=== PATIENT | female | born 2005 | race Caucasian/White ===

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

== ENCOUNTER 2023-02-13 09:45 | Emergency (ER) | payer OTHER, SELFPAY ==
[2023-02-13 10:11] VITALS: BP 114/74; PULSE 94; RESP 19; TEMP 37.2; O2SAT 100; BMI 18.2
[2023-02-13 11:20] LABS: COVID-19 Test Negative (Negative); IDNOW Serial# 9DB6401D
[2023-02-13 11:45] LABS: Influenza A PCR NEGATIVE (Negative); Influenza B PCR NEGATIVE (Negative); Resp Syncy Virus RNA Qual PCR NEGATIVE (Negative); SARS COV2 PCR INHOUSE NEGATIVE (Negative)
--- OUTSIDE RECORDS SUMMARY | 2023-02-13 12:03 | XMS_ITS | Continuity of Care Document ---
Author Name Unknown Organization [facility] Address [address] [place] [address]- Care Team Providers Care Studio Camera Operator Name Role Phone Jenny WILSON, Venancio Smith Primary Care Physician [phone] Encounter [facility] Date(s): 05/25/21 - 06/24/21 [facility] [address] [place] [address]- Attending Physician: Admrico, Luis Admitting Physician: Admtr, Luis Referring Physician: Admtr, Ar8 Allergies, Adverse Reactions, Alerts Substance Reaction Severity Status Glutens Active Other Environmental Allergy Active Immunizations Given and Recorded Vaccine Date Status Refusal Reason SARS-CoV-2 (COVID-19) Ad26 vaccine 1 03/08/21 Give n tetanus/diphtheria/pertussis, acel(Tdap) 02/06/21 Given tetanus/diphtheria/pertussis, acel(Tdap) 11/14/12 Recorded tetanus/diphtheria/pertussis, acel(Tdap) 06/01/11 Recorded Meningococcal Conjugate Vaccine 02/06/21 Given Meningococcal Conjugate Vaccine 06/10/15 Recorded influenza virus vaccine, inactivated 06/17/20 Vipin rded influenza virus vaccine, inactivated 06/23/18 Vipin rded influenza virus vaccine, inactivated 07/16/17 Vipin rded influenza virus vaccine, inactivated 06/11/16 Vipin rded influenza virus vaccine, inactivated 06/10/15 Vipin rded meningococcal group B vaccine 10/24/19 Recorded Hepatitis A Pediatric Vaccine 07/16/17 Recorded Hepatitis A Pediatric Vaccine 06/11/16 Recorded Human Papillomavirus Vaccine 02/15/16 Recorded Human Papillomavirus Vaccine 10/14/15 Recorded Human Papillomavirus Vaccine 06/10/15 Recorded pneumococcal 13-valent vaccine 10/14/15 Recorded Poliovirus Vaccine, Inactivated 11/14/12 Recorded Poliovirus Vaccine, Inactivated 05/15/12 Recorded Poliovirus Vaccine, Inactivated 06/01/11 Recorded hepatitis B pediatric vaccine 11/14/12 Recorded hepatitis B pediatric vaccine 07/17/12 Recorded hepatitis B pediatric vaccine 05/15/12 Recorded tetanus-diphtheria toxoids (Td) 05/15/12 Recorded Varicella Virus Vaccine 06/01/11 Recorded Varicella Virus Vaccine 01/11/04 Recorded Varicella Virus Vaccine 01/11/04 Recorded Measles/Mumps/Rubella Virus Vaccine 07/31/06 Recor ded Measles/Mumps/Rubella Virus Vaccine 01/11/04 Recor ded 1Result Comment: [facility]: 39236-846-11 Medications albuterol CFC free 90 mcg/inh inhalation aerosol See Instructions, 2 puffs Inhalation PRN, 0 Refills, Maintenance Start Date: 06/15/11 Status: Ordered diclofenac sodium 75 mg oral delayed release tablet 1 tablet = 75 mg, By Mouth, 2 times a day, # 60 tablet, 0 Refills, Maintenance, 05/25/21 17:16:00 EDT, EC Tablet, [facility]/pharmacy #[id number], Partial fill upon patient request if the prescription is for a schedule II opioid drug., 154, cm, 05/25/21 17:04:00 E... Start Date: 05/25/21 Status: Ordered HydrOXYzine 0 Refills, Maintenance, 10/19/19 22:14:00 EST Start Date: 10/19/19 Status: Ordered Lexapro 10 mg oral tablet See Instructions, 1 tablet By Mouth Daily, 0 Refills, Maintenance, 10/08/18 7:56:27 EST Start Date: 10/08/18 Status: Ordered Senna 8.6 mg oral tablet 17.2 mg, 2, tablet, By Mouth, Daily at bedtime, PRN, # 100 tablet, Refills 0, Tot. Refills 0, Maintenance, for constipation, 04/07/21 16:17:00 EDT, Route to Pharmacy Electronically, [facility]/pharmacy #[id number] Tablet, Partial fill upon patient request if the p... Start Date: 04/07/21 Status: Ordered Singulair 10 mg oral tablet 10 mg, 1, tablet, By Mouth, Daily, # 30 tablet, Refills 4, Tot. Refills 4, Maintenance, 02/06/21 15:36:00 EDT, Route to Pharmacy Electronically, [facility]/pharmacy #[id number], Partial fill upon patient request if the prescription is for a schedule II opioid drug... Start Date: 02/06/21 Status: Ordered Symbicort 160mcg/4.5mcg Inhaler 2, puffs, Inhalation, 2 times a day, # 6 Gm, Refills 3, Tot. Refills 3, Maintenance, 04/07/21 16:17:00 EDT, Aerosol, Route to Pharmacy Electronically, [id number], [facility]/pharmacy #[id number], 155, cm, 04/07/21 15:49:00 EDT, Height, 58... Start Date: 04/07/21 Status: Ordered Problem List Condition Effective Dates Status Health Status Inform ant Chest pain(Confirmed) Active Chronic migraine(Confirmed) Active Mild persistent asthma(Confirmed) Active Social History Social History Type Response Smoking Status Never smoker; Tobacc o user in household: No entered on: 12/12/15 Sex Female
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
--- OUTSIDE RECORDS SUMMARY | 2023-02-13 12:03 | XMS_ITS | Continuity of Care Document ---
Author Name Unknown Organization [facility] Address [address] [place] [address]- Care Team Providers Care Mix Technician Name Role Phone Jenny WILSON, Venancio Smith Primary Care Physician [facility] Date(s): 04/07/21 - 05/07/21 [facility] [address] [place] [address]- Attending Physician: Luis Boudreaux Admitting Physician: AdmLuis gómez Referring Physician: AdmtrLuis Allergies, Adverse Reactions, Alerts Substance Reaction Severity [...] Papillomavirus Vaccine 06/10/15 Recorded pneumococcal 13-valent vaccine 1/22/16 Recorded Poliovirus Vaccine, Inactivated 11/14/12 Recorded Poliovirus [...] Virus Vaccine 01/11/04 Recor ded 1Result Comment: [facility]: [id number] Medications Aerochamber w/Mask (Small) See Instructions, # 1 each, Maintenance, For use with MDI ICD10: J45.50, 02/08/21 10:03:00 EDT, Supply, 155, cm, 02/06/21 15:21:00 EDT, Height, 58.2, kg, 11/12/20 19:29:00 EST, Dry Weight Start Date: 02/08/21 Status: Ordered albuterol CFC free 90 mcg/inh inhalation aerosol See Instructions, 2 puffs Inhalation PRN, 0 Refills, Maintenance Start Date: 06/15/11 Status: Ordered diclofenac 1% topical gel See Instructions, APPLY TO AFFECTED AREA 4 TIMES A DAY NEEDED FOR PAIN, # 100 Gm, 0 Refills, Maintenance, [id number], 30, APPLY TO AFFECTED AREA 4 TIMES A DAY NEEDED FOR PAIN, 155, cm, 02/06/21 15:21:00 EDT, Height, 58.2, kg, 11/12/20 19:29... Start Date: 03/06/21 Status: Ordered HydrOXYzine 0 Refills, Maintenance, 10/19/19 22:14:00 EST Start Date: 10/19/19 Status: Ordered Junel Fe .5 oral tablet 1 tablet, By Mouth, Daily, # 84 tablet, 3 Refills, Maintenance, 01/04/20 9:25:00 EDT, Tablet, [id number], 1 tablet By Mouth Daily, 157, cm, 12/29/19 10:27:00 EDT, Height, 53.7, kg, 12/29/19 10:27:00 EDT, Dry Weight Start Date: 01/04/20 Status: Ordered Lexapro 10 mg oral tablet See Instructions, 1 tablet By Mouth Daily, 0 Refills, Maintenance, 10/08/18 7:56:27 EST Start Date: 10/08/18 Status: Ordered meclizine 12.5 mg oral tablet 1 tablet = 12.5 mg, By Mouth, 3 times a day, PRN for dizziness, # 30 tablet, 0 Refills, Maintenance, 04/07/21 16:15:00 EDT, Tablet, [id number], Partial fill upon patient request if the prescription is for a schedule II opioid drug., 155, cm, 0... Start Date: 04/07/21 Status: Ordered Nexplanon 68 mg subcutaneous implant 1 each = 68 mg, Subcutaneous Infusion, Once, 0 Refills, Maintenance, 11/12/20 19:32:00 EST, Partialfill upon patient request if the prescription is for a schedule II opioid drug. Start Date: 11/12/20 Status: Ordered omeprazole 20 mg oral enteric coated capsule 1 capsule = 20 mg, By Mouth, Daily, # 30 capsule, 2 Refills, Maintenance, 04/10/21 14:55:00 EDT, ECCapsule, [id number], Partial fill upon patient request if the prescription is for a schedule II opioid drug., 155, cm, 04/07/21 15:49:00 EDT, H... Start Date: 04/10/21 Status: Ordered Senna 8.6 mg oral tablet 17.2 mg, 2, tablet, By Mouth, Daily at bedtime, PRN, # 100 tablet, Refills 0, Tot. Refills 0, Maintenance, for constipation, 04/07/21 16:17:00 EDT, Route to Pharmacy Electronically, [id number] Tablet, Partial fill upon patient request if the p... Start Date: 04/07/21 Status: Ordered Singulair 10 mg oral tablet 10 mg, 1, tablet, By Mouth, Daily, # 30 tablet, Refills 4, Tot. Refills 4, Maintenance, 02/06/21 15:36:00 EDT, Route to Pharmacy Electronically, [id number], Partial fill upon patient request if the prescription is for a schedule II opioid drug... Start Date: 02/06/21 Status: Ordered Symbicort 160mcg/4.5mcg Inhaler 2, puffs, Inhalation, 2 times a day, # 6 Gm, Refills 3, Tot. Refills 3, Maintenance, 04/07/21 16:17:00 EDT, Aerosol, Route to Pharmacy Electronically, [id number], [facility]/pharmacy #[id number], 155, cm, 04/07/21 15:49:00 EDT, Height, 58... Start Date: 04/07/21 Status: Ordered Problem List Condition Effective Dates Status Health Status Inform ant Chest pain(Confirmed) Active Chronic migraine(Confirmed) Active Mild persistent asthma(Confirmed) Active Social History Social History Type Response Smoking Status Never smoker; Tobacc o user in household: No entered on: 12/12/15 Sex Female
--- OUTSIDE RECORDS SUMMARY | 2023-02-13 12:03 | XMS_ITS | Continuity of Care Document ---
Author Name Unknown Organization [facility] Address [address] [place] [address]- Care Team Providers Care Outside Sales Consultant Name Role Phone Jenny WILSON, Venancio Smith Primary Care Physician [phone] Encounter [facility] Date(s): 02/06/21 - 02/13/21 [facility] [address] [place] [address]- Encounter Diagnosis Encounter to establish care(Discharge Diagnosis) - 02/12/21 Mild persistent asthma(Discharge Diagnosis) - 02/12/21 Left knee pain(Discharge Diagnosis) - 02/12/21 Anxiety with depression(Discharge Diagnosis) - 02/12/21 ADHD (attention deficit hyperactivity disorder)(Discharge Diagnosis) - 02/12/21 Attending Physician: Venancio Alvarado NP Allergies, Adverse Reactions, Alerts Substance Reaction Severity [...] 3 Refills, Maintenance, 01/04/20 9:25:00 EDT, Tablet, [facility]/pharmacy #[id number], 1 tablet By Mouth Daily, [...] 10:01:00 EDT, Aerosol, Route to Pharmacy Electronically, [id number], [id number], 155, cm, 02/06/21 15:21:00 EDT, [...] Effective Dates Health Status Clinical Service Informant Encounter to establish care Discharge Diagnosis 02/12/21 Mild persistent asthma Discharge Diagnosis 02/12/21 Left knee pain Discharge Diagnosis 02/12/21 Anxiety with depression Discharge Diagnosis 02/12/21 ADHD (attention deficit hyperactivity disorder) Discharge Diagnosis 02/12/21 Vital Signs Most recent to oldest [Reference Range]: 1 Height 155 cm (02/06/21 3:21 PM) Weight 52.2 kg (02/06/21 3:21 PM) Oxygen Saturation [94-100 %] 99 % (02/06/21 3:21 PM) Pulse Rate [55-90 bpm] 73 bpm (02/06/21 3:21 PM) Body Mass Index [18.5-24.99] 21.73 (02/06/21 3:21 PM) Blood Pressure [71-110/30-71 mm Hg] 104/ 67mm Hg (02/06/21 3:21 PM) Respiratory Rate [16-30 br/min] 18 br/mi n (02/06/21 3:21 PM) Blood pressure sites Arm, left (02/06/21 3:21 PM) Weight Obtained Via Standing scale (02/06/21 3:21 PM) Social History Social History Type Response Smoking Status Never smoker; Tobacc o user in household: No entered on: 12/12/15 Sex Female
--- OUTSIDE RECORDS SUMMARY | 2023-02-13 12:03 | XMS_ITS | Continuity of Care Document ---
Author Name Unknown Organization [facility] ter Address [address] [place] [address]- Care Team Providers Care Supply Chain Procurement Manager Name Role Phone Aldo RIVAS, Teto Capone Primary Care Physicia n Encounter [facility] Date(s): 10/09/19 - 10/09/[address] [address]- [facility] Discharge Disposition: A-D/C Home Attending Physician: Goodman RIVAS, Elton Ramírez Admitting Physician: Elton Torres MD Referring Physician: Not on Staff, Referring MD Allergies, Adverse Reactions, Alerts Substance Reaction Severity Status NKA Active Medications albuterol CFC free 90 mcg/inh inhalation aerosol See Instructions, 2 puffs Inhalation PRN, 0 Refills, Maintenance Start Date: 06/15/11 Status: Ordered ibuprofen 600 mg oral tablet 600 mg, 1, tablet, By Mouth, Every 6 hours, PRN, Refills 0, Maintenance, Migraine Headache, 03/13/18 14:11:09 EDT Start Date: 03/13/18 Status: Ordered Fe 1.530 oral tablet 1 tablet, By Mouth, Daily, # 84 tablet, 0 Refills, Maintenance, 09/04/19 13:31:21 EST, Tablet, 1 tablet By Mouth Daily, 153, cm, 09/04/19 12:59:43 EST, Height, 55, kg, 08/03/19 12:23:46 EST, Dry Weight Start Date: 09/04/19 Status: Ordered Lexapro 10 mg oral tablet See Instructions, 1 tablet By Mouth Daily, 0 Refills, Maintenance, 10/08/18 7:56:27 EST Start Date: 10/08/18 Status: Ordered Qvar 40 mcg Inhaler 80 mcg, Inhalation, Daily, 2 puffs, Maintenance, 12/12/15 9:28:53 EDT Start Date: 12/12/15 Status: Ordered Rizatriptan By Mouth, Daily, PRN as needed for migraine headache, 0 Refills, Maintenance, 03/13/18 14:11:01 EDT Start Date: 03/13/18 Status: Ordered SUMAtriptan 25 mg oral tablet 1 tablet = 25 mg, By Mouth, Daily, PRN for migraine headache, for 30 days, may repeat dose after 2 hours up to a maximum of 2, # 18 tablet, 0 Refills, Acute 11/08/19 9:53:00 EST, 10/09/19 9:53:00 EST, Tablet, [facility]/pharmacy #[id number], 157, cm, 10/09/19 6:47... Start Date: 10/09/19 Stop Date: 11/08/19 Status: Ordered Vyvanse By Mouth, Daily in AM, 0 Refills, Maintenance, 08/03/19 12:26:58 EST Start Date: 08/03/19 Status: Ordered Zofran ODT 4 mg oral tablet, disintegrating 1 tablet = 4 mg, By Mouth, Every 8 hours, PRN as needed for nausea/vomiting, # 10 tablet, 0 Refills, Maintenance, 05/09/19 21:56:12 EDT Start Date: 05/09/19 Status: Ordered Zofran ODT 4 mg oral tablet, disintegrating 1 tablet = 4 mg, By Mouth, 3 times a day, PRN Nausea, # 10 tablet, 0 Refills, Maintenance, 03/13/1815:03:38 EDT Start Date: 03/13/18 Status: Ordered ZyrTEC 10 mg oral tablet 1 tablet = 10 mg, By Mouth, Daily, # 30 tablet, 0 Refills, Maintenance, 02/12/19 0:22:06 EDT, Tablet Start Date: 02/12/19 Status: Ordered Problem List Condition Effective Dates Status Health Status Inform ant Chest pain(Confirmed) Active Chronic migraine(Confirmed) Active Mild persistent asthma(Confirmed) Active Well child(Confirmed) Active Vital Signs Most recent to oldest [Reference Range]: 1 2 3 Height 157 cm (10/09/19 10:15 AM) 157 cm (10/09/19 6:40 AM) Weight 53.3 kg (10/09/19 10:15 AM) 53.3 kg (10/09/19 6:40 AM) Oxygen Saturation [94-100 %] 100 % (10/09/19 10:15 AM) 99 % (10/09/19 6:40 AM) Pulse Rate [55-90 bpm] 65 bpm (10/09/19 10:15 AM) 82 bpm (10/09/19 6:40 AM) Body Mass Index [18.5-24.99] 21.62 (10/09/19 10:15 AM) Blood Pressure [80-130/50-80 mm Hg] 104/66mm Hg (10/09/19 10:15 AM) 120/62mm Hg (10/09/19 6:40 AM) Respiratory Rate [16-30 br/min] 18 br/min (10/09/19 10:15 AM) 18 br/min (10/09/19 8:57 AM) 18 br/min (10/09/19 7:46 AM) Temperature [96.8-100.4 DegF] 98.6 DegF (10/09/19 10:15 AM) 97.8 DegF (10/09/19 6:40 AM) Mode of Delivery (Oxygen) Room air (10/09/19 10:15 AM) Room air (10/09/19 6:40 AM) Blood pressure sites Arm, left (10/09/19 10:15 AM) Arm, left (10/09/19 6:40 AM) Temperature Route Oral (10/09/19 10:15 AM) Oral (10/09/19 6:40 AM) Dry Weight 53.3 kg (10/09/19 10:15 AM) 53.3 kg (10/09/19 6:40 AM) Weight Obtained Via Pediatric scale (10/09/19 6:40 AM) Dry Weight Obtained Via Pediatric scale (10/09/19 6:40 AM) Social History Social History Type Response Smoking Status Never smoker; Tobacc o user in household: No entered on: 12/12/15 Sex Female
--- OUTSIDE RECORDS SUMMARY | 2023-02-13 12:04 | XMS_ITS | Continuity of Care Document ---
Author Name Unknown Organization [facility] Address [address], [address] [place] [address]- Care Team Providers Care Transcript Clerk Name Role Phone Aldo RIVAS, Teto Capone Primary Care Physicia n [id number] - 01[facility]11/20 [facility] [address], [address] [place] [address]- Attending Physician: Fidelina RIVAS, Maddi Gentile Allergies, Adverse Reactions, Alerts Substance Reaction Severity [...] puffs, Maintenance, 12/12/15 9:28:53 EDT Start Date: 3/21/16 Status: Ordered Rizatriptan By Mouth, Daily, PRN as needed for migraine headache, 0 Refills, Maintenance, 03/13/18 14:11:01 EDT Start Date: 03/13/18 Status: Ordered Problem List Condition Effective Dates Status Health Status Inform ant Chest pain(Confirmed) Active Chronic migraine(Confirmed) Active Mild persistent asthma(Confirmed) Active Well child(Confirmed) Active Social History Social History Type Response Smoking Status Never smoker; Tobacc o user in household: No entered on: 12/12/15 Sex Female
--- OUTSIDE RECORDS SUMMARY | 2023-02-13 12:04 | XMS_ITS | Continuity of Care Document ---
Author Name Unknown Organization [facility] Address [address] [place] [address]- Care Team Providers Care Dairy Lab Technician Name Role Phone Charles Mccoy DO Primary Care Physician Encounter [facility] Date(s): 11/19/22 - 12/19/22 [facility] [address] [place] [address]- Attending Physician: Luis Boudreaux Admitting Physician: AdmLuis [...] Virus Vaccine 01/11/04 Recor ded 1Result Comment: [facility]: 61391-248-00 Medications albuterol CFC free 90 mcg/inh inhalation aerosol See Instructions, 2 puffs Inhalation PRN, 0 Refills, Maintenance Start Date: 06/15/11 Status: Ordered albuterol CFC free 90 mcg/inh inhalation aerosol 1, puffs, Inhalation, Every 6 hours, PRN, # 6.7 Gm, Refills 5, Tot. Refills 5, Maintenance, 08/28/21 13:56:00 EST, Aerosol, Route to Pharmacy Electronically, [id number], [facility]/pharmacy #[id number], 154, cm, 07/05/21 9:00:00 EDT, Gerryig... Start Date: 08/28/21 Status: Ordered diclofenac sodium 75 mg oral delayed release tablet 1 tablet = 75 mg, By Mouth, 2 times a day, # 60 tablet, 0 Refills, Maintenance, 05/25/21 17:16:00 EDT, EC Tablet, [facility]/pharmacy #[id number], Partial fill upon patient request if the prescription is for a schedule II opioid drug., 154, cm, 05/25/21 17:04:00 E... Start Date: 05/25/21 Status: Ordered HydrOXYzine 0 Refills, Maintenance, 10/19/19 22:14:00 EST Start Date: 10/19/19 Status: Ordered Lexapro 10 mg oral tablet See Instructions, 1 tablet By Mouth Daily, 0 Refills, Maintenance, 10/08/18 7:56:27 EST Start Date: 10/08/18 Status: Ordered montelukast 10 mg oral tablet See Instructions, TAKE 1 TABLET BY MOUTH EVERY DAY, # 30 tablet, Refills 4, Instructions Replace Required Details, Route to Pharmacy Electronically, [id number], 154, cm, 07/05/21 9:00:00 EDT, Height, 54, kg, 05/20/21 16:36:00 EDT, Dry Weight Start Date: 02/10/22 Status: Ordered Nature's Bounty Probiotic oral tablet 1 tablet, By Mouth, Daily, # 30 tablet, 0 Refills, Maintenance, 07/05/21 9:25:00 EDT, [facility]/pharmacy #1026, Partial fill upon patient request if the prescription is for a schedule II opioid drug., 1 tablet By Mouth Daily, 154, cm, 07/05/21 9:00:00 EDT,... Start Date: 07/05/21 Status: Ordered Senna 8.6 mg oral tablet 17.2 mg, 2, tablet, By Mouth, Daily at bedtime, PRN, # 100 tablet, Refills 0, Tot. Refills 0, Maintenance, for constipation, 04/07/21 16:17:00 EDT, Route to Pharmacy Electronically, [facility]/pharmacy #1026 Tablet, Partial fill upon patient request if the p... Start Date: 04/07/21 Status: Ordered Singulair 10 mg oral tablet 10 mg, 1, tablet, By Mouth, Daily, # 30 tablet, Refills 4, Tot. Refills 4, Maintenance, 02/06/21 15:36:00 EDT, Route to Pharmacy Electronically, [facility]/pharmacy #[id number], Partial fill upon patient request if the prescription is for a schedule II opioid drug... Start Date: 02/06/21 Status: Ordered Symbicort 160mcg/4.5mcg Inhaler 2, puffs, Inhalation, 2 times a day, # 6 Gm, Refills 3, Tot. Refills 3, Maintenance, 04/07/21 16:17:00 EDT, Aerosol, Route to Pharmacy Electronically, [id number], [facility]/pharmacy #1026, 155, cm, 04/07/21 15:49:00 EDT, Height, 58... Start Date: 04/07/21 Status: Ordered Problem List Condition Confirmation Course Effective Dates Status Health St atus Informant Chest pain Confirmed Active Chronic migraine Confirmed Active Mild persistent asthma Confirmed Active Social History Social History Type Response Smoking Status Never smoker; Tobacc o user in household: No entered on: 12/12/15 Sex Female Note * Event Display: Non BH Lab Results Authored Date: * Event Display: Non BH Lab Results Authored Date: * Event Display: Non BH Lab Results Authored Date: * Event Display: Non BH Lab Results Authored Date: * Event Display: Non BH Lab Results Authored Date: * Event Display: X-Ray Chest, Non- BH Authored Date: Patient Care team information Care Team Personnel Name: Charles Mccoy DO Position: S Primary Care Physician Member Role: PCP Address: Address: [address] [place] [address] Care Team Related Persons Name: LISE BEAVERS Address: [address] [place] [address] Name: SUMAN CRYSTAL Address: home [address] [place] [address] Name: NOR[address] Address: home [address] [place] [address] Name: NORMA [address] Address: home [address] [place] [address] [place] [address] Name: [address]ISE [address] Address: home [address] [place] [address] [place] [address] Name: GRACIELA CAZARES
--- OUTSIDE RECORDS SUMMARY | 2023-02-13 12:04 | XMS_ITS | Continuity of Care Document ---
Author Name Unknown Organization [facility] Address [address] [place] [address]- Care Team Providers Care Internet Media Planner Name Role Phone Jenny WILSON, Venancio Smith Primary Care Physician [phone] Encounter [facility] Date(s): 04/10/21 - 05/10/21 [facility] [address] [place] [address]- Allergies, Adverse Reactions, Alerts Substance Reaction Severity [...] Virus Vaccine 01/11/04 Recor ded 1Result Comment: [facility]: 90260-390-68 Medications Aerochamber w/Mask (Small) See Instructions, # [...] PAIN, # 100 Gm, 0 Refills, Maintenance, [id number], 30, APPLY TO AFFECTED AREA 4 TIMES A DAY NEEDED FOR PAIN, 155, cm, 02/06/21 15:21:00 EDT, Height, 58.2, kg, 11/12/20 19:29... Start Date: 03/06/21 Status: Ordered HydrOXYzine 0 Refills, Maintenance, 10/19/19 22:14:00 EST Start Date: 10/19/19 Status: Ordered Junel Fe 1.530 oral tablet 1 tablet, By Mouth, Daily, # 84 tablet, 3 Refills, Maintenance, 01/04/20 9:25:00 EDT, Tablet, [facility]/pharmacy #1026, 1 tablet By Mouth Daily, [...] 16:17:00 EDT, Aerosol, Route to Pharmacy Electronically, [id number], [facility]/pharmacy #1026, 155, cm, 04/07/21 15:49:00 EDT, Height, 58... Start Date: 04/07/21 Status: Ordered Problem List Condition Effective Dates Status Health Status Inform ant Chest pain(Confirmed) Active Chronic migraine(Confirmed) Active Mild persistent asthma(Confirmed) Active Social History Social History Type Response Smoking Status Never smoker; Tobacc o user in household: No entered on: 12/12/15 Sex Female
--- OUTSIDE RECORDS SUMMARY | 2023-02-13 12:04 | XMS_ITS | Continuity of Care Document ---
Author Name Unknown Organization [facility] Address [address] [place] [address]- Care Team Providers Care Distribution Engineer Name Role Phone Jenny WILSON, Venancio Smith Primary Care Physician Encounter [facility] Date(s): 04/17/21 - 05/17/21 [facility] [address] [place] [address]- Allergies, Adverse Reactions, Alerts Substance Reaction Severity [...] Virus Vaccine 01/11/04 Recor ded 1Result Comment: [facility]: 48236-562-53 Medications Aerochamber w/Mask (Small) See Instructions, # [...] PAIN, # 100 Gm, 0 Refills, Maintenance, [facility], 30, APPLY TO AFFECTED AREA 4 TIMES A DAY NEEDED FOR PAIN, 155, cm, 02/06/21 15:21:00 EDT, Height, 58.2, kg, 11/12/20 19:29... Start Date: 03/06/21 Status: Ordered HydrOXYzine 0 Refills, Maintenance, 10/19/19 22:14:00 EST Start Date: 10/19/19 Status: Ordered Junel Fe 1.530 oral tablet 1 tablet, By Mouth, Daily, # 84 tablet, 3 Refills, Maintenance, 01/04/20 9:25:00 EDT, Tablet, [facility]/pharmacy #1026, 1 tablet By Mouth [...] 16:17:00 EDT, Aerosol, Route to Pharmacy Electronically, [id number], [facility]/pharmacy #1026, 155, cm, 04/07/21 15:49:00 EDT, Height, 58... Start Date: 04/07/21 Status: Ordered Problem List Condition Effective Dates Status Health Status Inform ant Chest pain(Confirmed) Active Chronic migraine(Confirmed) Active Mild persistent asthma(Confirmed) Active Social History Social History Type Response Smoking Status Never smoker; Tobacc o user in household: No entered on: 12/12/15 Sex Female
--- OUTSIDE RECORDS SUMMARY | 2023-02-13 12:04 | XMS_ITS | Continuity of Care Document ---
Author Name Unknown Organization [facility] Address [address] [place] [address]- Care Team Providers Care Energy Risk Management Analyst Name Role Phone Jenny WILSON, Venancio Smith Primary Care Physician [facility]counter [facility] Date(s): 07/05/21 - 08/04/21 [facility] [address] [place] [address]- Attending Physician: Luis Boudreaux Admitting Physician: AdmLuis [...] Vaccine 01/11/04 Recor ded 1Result Comment: [facility]: 19253-523-97 Medications albuterol CFC free 90 mcg/inh inhalation aerosol See Instructions, 2 puffs Inhalation PRN, 0 Refills, Maintenance Start Date: 06/15/11 Status: Ordered albuterol CFC free 90 mcg/inh inhalation aerosol 1, puffs, Inhalation, Every 6 hours, PRN, # 6.7 Gm, Refills 0, Tot. Refills 0, Maintenance, 08/01/21 10:40:00 EST, Aerosol, Route to Pharmacy Electronically, [id number], [facility]/pharmacy #1026, 154, cm, 07/05/21 9:00:00 EDT, Aaliyah... Start Date: 08/01/21 Status: Ordered diclofenac sodium 75 mg oral delayed release tablet 1 tablet = 75 mg, By Mouth, 2 times a day, # 60 tablet, 0 Refills, Maintenance, 05/25/21 17:16:00 EDT, EC Tablet, [facility]/pharmacy #1026, Partial fill upon patient request if the prescription is for a schedule II opioid drug., 154, cm, 05/25/21 17:04:00 E... Start Date: 05/25/21 Status: Ordered HydrOXYzine 0 Refills, Maintenance, 10/19/19 22:14:00 EST Start Date: 10/19/19 Status: Ordered Lexapro 10 mg oral tablet See Instructions, 1 tablet By Mouth Daily, 0 Refills, Maintenance, 10/08/18 7:56:27 EST Start Date: 10/08/18 Status: Ordered Nature's Bounty Probiotic oral tablet 1 tablet, By Mouth, Daily, # 30 tablet, 0 Refills, Maintenance, 07/05/21 9:25:00 EDT, [facility]/pharmacy #1026, Partial fill upon patient request [...] 04/07/21 16:17:00 EDT, Route to Pharmacy Electronically, [facility]/pharmacy #1026 Tablet, Partial fill upon patient request if the p... Start Date: 04/07/21 Status: Ordered Singulair 10 mg oral tablet 10 mg, 1, tablet, By Mouth, Daily, # 30 tablet, Refills 4, Tot. Refills 4, Maintenance, 02/06/21 15:36:00 EDT, Route to Pharmacy Electronically, [facility]/pharmacy #[id number], Partial fill upon patient request if the prescription is for a schedule II opioid drug... Start Date: 02/06/21 Status: Ordered Symbicort 160mcg/4.5mcg Inhaler 2, puffs, Inhalation, 2 times a day, # 6 Gm, Refills 3, Tot. Refills 3, Maintenance, 04/07/21 16:17:00 EDT, Aerosol, Route to Pharmacy Electronically, [id number], [facility]/pharmacy #1026, 155, cm, 04/07/21 15:49:00 EDT, Height, 58... Start Date: 04/07/21 Status: Ordered Problem List Condition Effective Dates Status Health Status Inform ant Chest pain(Confirmed) Active Chronic migraine(Confirmed) Active Mild persistent asthma(Confirmed) Active Social History Social History Type Response Smoking Status Never smoker; Tobacc o user in household: No entered on: 12/12/15 Sex Female
--- OUTSIDE RECORDS SUMMARY | 2023-02-13 12:04 | XMS_ITS | Continuity of Care Document ---
Author Name Unknown Organization [facility] Address [address] [place] [address]- Care Team Providers Care Electronics Assembler Name Role Phone Jenny WILSON, Venancio Smith Primary Care Physician [phone] Encounter [facility] Date(s): 06/15/21 - 06/22/21 [facility] [address] [place] [address]- Attending Physician: Not on Staff, Attending MD Referring Physician: Venancio Alvarado NP Allergies, Adverse Reactions, [...] Vaccine 01/11/04 Recor ded 1Result Comment: [facility]: 11266-138-87 Medications albuterol CFC free 90 mcg/inh inhalation aerosol See Instructions, 2 puffs Inhalation PRN, 0 Refills, Maintenance Start Date: 06/15/11 Status: Ordered diclofenac sodium 75 mg oral delayed release tablet 1 tablet = 75 mg, By Mouth, 2 times a day, # 60 tablet, 0 Refills, Maintenance, 05/25/21 17:16:00 EDT, EC Tablet, [facility]/pharmacy #1026, Partial fill upon patient request if [...] 04/07/21 16:17:00 EDT, Route to Pharmacy Electronically, [facility]/pharmacy #1026 Tablet, Partial fill upon patient request if the p... Start Date: 04/07/21 Status: Ordered Singulair 10 mg oral tablet 10 mg, 1, tablet, By Mouth, Daily, # 30 tablet, Refills 4, Tot. Refills 4, Maintenance, 02/06/21 15:36:00 EDT, Route to Pharmacy Electronically, [facility]/pharmacy #[id number], Partial fill upon patient request if the prescription is for a schedule II opioid drug... Start Date: 02/06/21 Status: Ordered Symbicort 160mcg/4.5mcg Inhaler 2, puffs, Inhalation, 2 times a day, # 6 Gm, Refills 3, Tot. Refills 3, Maintenance, 04/07/21 16:17:00 EDT, Aerosol, Route to Pharmacy Electronically, [id number], [facility]/pharmacy #1026, 155, cm, 04/07/21 15:49:00 EDT, Height, 58... Start Date: 04/07/21 Status: Ordered Problem List Condition Effective Dates Status Health Status Inform ant Chest pain(Confirmed) Active Chronic migraine(Confirmed) Active Mild persistent asthma(Confirmed) Active Social History Social History Type Response Smoking Status Never smoker; Tobacc o user in household: No entered on: 12/12/15 Sex Female
--- OUTSIDE RECORDS SUMMARY | 2023-02-13 12:04 | XMS_ITS | Continuity of Care Document ---
Author Name Unknown Organization [facility] ter Address [address] [place] [address]- Care Team Providers Care Anesthesiologists' Assistant Name Role Phone Aldo RIVAS, Teto Capone Primary Care Physicia n Encounter [facility] Date(s): 12/29/19 - 12/29/[address] [address] Encounter Diagnosis Jaw pain(Final) - 12/29/19 Discharge Disposition: A-D/C Home Attending Physician: Keiko rConin MD Admitting Physician: Keiko Cronin MD Referring Physician: Not on Staff, Referring MD Allergies, Adverse Reactions, Alerts Substance Reaction Severity Status NKA Active Medications albuterol CFC free 90 mcg/inh inhalation aerosol See Instructions, 2 puffs Inhalation PRN, 0 Refills, Maintenance Start Date: 06/15/11 Status: Ordered HydrOXYzine 0 Refills, Maintenance, 10/19/19 22:14:00 EST Start Date: 10/19/19 Status: Ordered Junel Fe .530 oral tablet 1 tablet, By Mouth, Daily, [...] recent to oldest [Reference Range]: 1 2 Height 157 cm (12/29/19 10:27 AM) 157 cm (12/29/19 10:23 AM) Weight 53.7 kg (12/29/19 10:27 AM) 53.7 kg (12/29/19 10:23 AM) Oxygen Saturation [94-100 %] 100 % (12/29/19 12:54 PM) 100 % (12/29/19 10:23 AM) Pulse Rate [55-90 bpm] 82 bpm (12/29/19 12:54 PM) 88 bpm (12/29/19 10:23 AM) Body Mass Index [18.5-24.99] 21.79 (12/29/19 10:23 AM) Blood Pressure [80-130/50-80 mm Hg] 101/ 72mm Hg (12/29/19 12:54 PM) 118/84mm Hg (12/29/19 10:23 AM) Respiratory Rate [16-30 br/min] 18 br/mi n (12/29/19 12:54 PM) 20 br/min (12/29/19 10:23 AM) Temperature [96.8-100.4 DegF] 98.6 DegF (12/29/19 12:54 PM) 99.3 DegF (12/29/19 10:23 AM) Mode of Delivery (Oxygen) Room air (12/29/19 12:54 PM) Room air (12/29/19 10:23 AM) Blood pressure sites Arm, left (12/29/19 12:54 PM) Arm, left (12/29/19 10:23 AM) Temperature Route Oral (12/29/19 12:54 PM) Oral (12/29/19 10:23 AM) Dry Weight 53.7 kg (12/29/19 10:27 AM) 53.7 kg (12/29/19 10:23 AM) Weight Obtained Via Standing scale (12/29/19 10:23 AM) Dry Weight Obtained Via Standing scale (12/29/19 10:23 AM) Social History Social History Type Response Smoking Status Never smoker; Tobacc o user in household: No entered on: 12/12/15 Sex Female
--- OUTSIDE RECORDS SUMMARY | 2023-02-13 12:04 | XMS_ITS | Continuity of Care Document ---
Author Name Unknown Organization [facility] Address [address] [place] [address]- Care Team Providers Care Stripper Apprentice Name Role Phone Jenny WILSON, Venancio Smith Primary Care Physician [phone] Encounter [facility] Date(s): 06/15/21 - 07/21/21 [facility] [address] [place] [address]- Attending Physician: Venancio Alvarado NP Allergies, Adverse [...] Vaccine 01/11/04 Recor ded 1Result Comment: [facility]: 45526-228-72 Medications albuterol CFC free 90 mcg/inh inhalation aerosol See Instructions, 2 puffs Inhalation PRN, 0 Refills, Maintenance Start Date: 06/15/11 Status: Ordered diclofenac sodium 75 mg oral delayed release tablet 1 tablet = 75 mg, By Mouth, 2 times a day, # 60 tablet, 0 Refills, Maintenance, 05/25/21 17:16:00 EDT, EC Tablet, [facility]/pharmacy #1026, Partial fill upon patient request if [...] tablet, 0 Refills, Maintenance, 07/05/21 9:25:00 EDT, [facility]/pharmacy #[id number], Partial fill upon patient request [...] 04/07/21 16:17:00 EDT, Route to Pharmacy Electronically, [facility]/pharmacy #1026 Tablet, Partial fill upon patient request if the p... Start Date: 04/07/21 Status: Ordered Singulair 10 mg oral tablet 10 mg, 1, tablet, By Mouth, Daily, # 30 tablet, Refills 4, Tot. Refills 4, Maintenance, 02/06/21 15:36:00 EDT, Route to Pharmacy Electronically, [facility]/pharmacy #[id number], Partial fill upon patient request if the prescription is for a schedule II opioid drug... Start Date: 02/06/21 Status: Ordered Symbicort 160mcg/4.5mcg Inhaler 2, puffs, Inhalation, 2 times a day, # 6 Gm, Refills 3, Tot. Refills 3, Maintenance, 04/07/21 16:17:00 EDT, Aerosol, Route to Pharmacy Electronically, [id number], [facility]/pharmacy #1026, 155, cm, 04/07/21 15:49:00 EDT, Height, 58... Start Date: 04/07/21 Status: Ordered Problem List Condition Effective Dates Status Health Status Inform ant Chest pain(Confirmed) Active Chronic migraine(Confirmed) Active Mild persistent asthma(Confirmed) Active Social History Social History Type Response Smoking Status Never smoker; Tobacc o user in household: No entered on: 12/12/15 Sex Female
--- OUTSIDE RECORDS SUMMARY | 2023-02-13 12:04 | XMS_ITS | Continuity of Care Document ---
Author Name Unknown Organization [facility] Address [address] [place] [address]- Care Team Providers Care Nursery Worker Name Role Phone Joanne WILSON, Tomasa Link Primary Care Physician [facility] Date[facility]): 10[facility]21 - 11/17/21 [facility] [address] [place] [address]- Allergies, Adverse Reactions, Alerts Substance Reaction Severity [...] Virus Vaccine 01/11/04 Recor ded 1Result Comment: [facility]: [id number] Medications albuterol CFC free 90 mcg/inh inhalation aerosol See Instructions, 2 puffs Inhalation PRN, 0 Refills, Maintenance Start Date: 06/15/11 Status: Ordered albuterol CFC free 90 mcg/inh inhalation aerosol 1, puffs, Inhalation, Every 6 hours, PRN, # 6.7 Gm, Refills 5, Tot. Refills 5, Maintenance, 08/28/21 13:56:00 EST, Aerosol, Route to Pharmacy Electronically, [id number], [facility]/pharmacy #1026, 154, cm, 07/05/21 9:00:00 EDT, Heig... Start Date: 08/28/21 Status: Ordered diclofenac sodium 75 mg oral delayed release tablet 1 tablet = 75 mg, By Mouth, 2 times a day, # 60 tablet, 0 Refills, Maintenance, 05/25/21 17:16:00 EDT, EC Tablet, [facility]/pharmacy #1026, Partial fill upon patient request if [...] tablet, 0 Refills, Maintenance, 07/05/21 9:25:00 EDT, [facility]/pharmacy #1026, Partial fill upon patient request if [...] 04/07/21 16:17:00 EDT, Route to Pharmacy Electronically, [facility]/pharmacy #1026 Tablet, Partial fill upon patient request if the p... Start Date: 04/07/21 Status: Ordered Singulair 10 mg oral tablet 10 mg, 1, tablet, By Mouth, Daily, # 30 tablet, Refills 4, Tot. Refills 4, Maintenance, 02/06/21 15:36:00 EDT, Route to Pharmacy Electronically, [facility]/pharmacy #0693, Partial fill upon patient request if the prescription is for a schedule II opioid drug... Start Date: 02/06/21 Status: Ordered Symbicort 160mcg/4.5mcg Inhaler 2, puffs, Inhalation, 2 times a day, # 6 Gm, Refills 3, Tot. Refills 3, Maintenance, 04/07/21 16:17:00 EDT, Aerosol, Route to Pharmacy Electronically, [id number], [facility]/pharmacy #1026, 155, cm, 04/07/21 15:49:00 EDT, Height, 58... Start Date: 04/07/21 Status: Ordered Problem List Condition Effective Dates Status Health Status Inform ant Chest pain(Confirmed) Active Chronic migraine(Confirmed) Active Mild persistent asthma(Confirmed) Active Social History Social History Type Response Smoking Status Never smoker; Tobacc o user in household: No entered on: 12/12/15 Sex Female
--- OUTSIDE RECORDS SUMMARY | 2023-02-13 12:04 | XMS_ITS | Continuity of Care Document ---
Author Name Unknown Organization [facility] Address [address] [place] [address]- Care Team Providers Care Research Associate Quality Control Qc Name Role Phone Joanne WILSON, Tomasa Link Primary Care Physician [facility]): 10[facility] - 11/24/21 [facility] [address] [place] [address]- Attending Physician: Luis Boudreaux Admitting Physician: Luis Boudreaux Referring Physician: AdmtrLuis Allergies, Adverse Reactions, Alerts [...] Virus Vaccine 01/11/04 Recor ded 1Result Comment: [facility]: [id number] Medications albuterol CFC free 90 mcg/inh inhalation aerosol See Instructions, 2 puffs Inhalation PRN, 0 Refills, Maintenance Start Date: 06/15/11 Status: Ordered albuterol CFC free 90 mcg/inh inhalation aerosol 1, puffs, Inhalation, Every 6 hours, PRN, # 6.7 Gm, Refills 5, Tot. Refills 5, Maintenance, 08/28/21 13:56:00 EST, Aerosol, Route to Pharmacy Electronically, [id number], [facility]/pharmacy #1026, 154, cm, 07/05/21 9:00:00 EDT, Heig... Start Date: 08/28/21 Status: Ordered diclofenac sodium 75 mg oral delayed release tablet 1 tablet = 75 mg, By Mouth, 2 times a day, # 60 tablet, 0 Refills, Maintenance, 05/25/21 17:16:00 EDT, EC Tablet, [facility]/pharmacy #1026, Partial fill upon patient request [...] tablet, 0 Refills, Maintenance, 07/05/21 9:25:00 EDT, [facility]/pharmacy #1026, Partial fill upon patient request [...] 04/07/21 16:17:00 EDT, Route to Pharmacy Electronically, [facility]/pharmacy #1026 Tablet, Partial fill upon patient request if the p... Start Date: 04/07/21 Status: Ordered Singulair 10 mg oral tablet 10 mg, 1, tablet, By Mouth, Daily, # 30 tablet, Refills 4, Tot. Refills 4, Maintenance, 02/06/21 15:36:00 EDT, Route to Pharmacy Electronically, [facility]/pharmacy #0693, Partial fill upon patient request if the prescription is for a schedule II opioid drug... Start Date: 02/06/21 Status: Ordered Symbicort 160mcg/4.5mcg Inhaler 2, puffs, Inhalation, 2 times a day, # 6 Gm, Refills 3, Tot. Refills 3, Maintenance, 04/07/21 16:17:00 EDT, Aerosol, Route to Pharmacy Electronically, [id number], [facility]/pharmacy #1026, 155, cm, 04/07/21 15:49:00 EDT, Height, 58... Start Date: 04/07/21 Status: Ordered Problem List Condition Effective Dates Status Health Status Inform ant Chest pain(Confirmed) Active Chronic migraine(Confirmed) Active Mild persistent asthma(Confirmed) Active Social History Social History Type Response Smoking Status Never smoker; Tobacc o user in household: No entered on: 12/12/15 Sex Female
--- OUTSIDE RECORDS SUMMARY | 2023-02-13 12:04 | XMS_ITS | Continuity of Care Document ---
Author Name Unknown Organization [facility] Address [address] [place] [address]- Care Team Providers Care Track Laying Supervisor Name Role Phone Jenny WILSON, Venancio Smith Primary Care Physician [facility] Date[facility]): 07/31/21 - 08/30/21 [facility] [address] [place] [address]- Allergies, Adverse Reactions, Alerts Substance Reaction Severity [...] Virus Vaccine 01/11/04 Recor ded 1Result Comment: [facility]: 21370-988-68 Medications albuterol CFC free 90 mcg/inh inhalation aerosol See Instructions, 2 puffs Inhalation PRN, 0 Refills, Maintenance Start Date: 06/15/11 Status: Ordered albuterol CFC free 90 mcg/inh inhalation aerosol 1, puffs, Inhalation, Every 6 hours, PRN, # 6.7 Gm, Refills 5, Tot. Refills 5, Maintenance, 08/28/21 13:56:00 EST, Aerosol, Route to Pharmacy Electronically, [id number], [facility]/pharmacy #1026, 154, cm, 07/05/21 9:00:00 EDT, Heig... Start Date: 08/28/21 Status: Ordered diclofenac sodium 75 mg oral delayed release tablet 1 tablet = 75 mg, By Mouth, 2 times a day, # 60 tablet, 0 Refills, Maintenance, 05/25/21 17:16:00 EDT, EC Tablet, [facility]/pharmacy #1026, Partial fill upon patient request [...] tablet, 0 Refills, Maintenance, 07/05/21 9:25:00 EDT, [facility]/pharmacy #1026, Partial fill upon patient request [...] 04/07/21 16:17:00 EDT, Route to Pharmacy Electronically, [facility]/pharmacy #1026 Tablet, Partial fill upon patient request if the p... Start Date: 04/07/21 Status: Ordered Singulair 10 mg oral tablet 10 mg, 1, tablet, By Mouth, Daily, # 30 tablet, Refills 4, Tot. Refills 4, Maintenance, 02/06/21 15:36:00 EDT, Route to Pharmacy Electronically, [facility]/pharmacy #0693, Partial fill upon patient request if the prescription is for a schedule II opioid drug... Start Date: 02/06/21 Status: Ordered Symbicort 160mcg/4.5mcg Inhaler 2, puffs, Inhalation, 2 times a day, # 6 Gm, Refills 3, Tot. Refills 3, Maintenance, 04/07/21 16:17:00 EDT, Aerosol, Route to Pharmacy Electronically, [id number], [facility]/pharmacy #1026, 155, cm, 04/07/21 15:49:00 EDT, Height, 58... Start Date: 04/07/21 Status: Ordered Problem List Condition Effective Dates Status Health Status Inform ant Chest pain(Confirmed) Active Chronic migraine(Confirmed) Active Mild persistent asthma(Confirmed) Active Social History Social History Type Response Smoking Status Never smoker; Tobacc o user in household: No entered on: 12/12/15 Sex Female
--- OUTSIDE RECORDS SUMMARY | 2023-02-13 12:04 | XMS_ITS | Continuity of Care Document ---
Author Name Unknown Organization [facility] Address [address] [place] [address]- Care Team Providers Care Coding Quality Coordinator Name Role Phone Jenny WILSON, Venancio Smith Primary Care Physician [facility] Date[facility]s): 06[facility]13[facility]21 - 07/13/21 [facility] [address] [place] [address]- Allergies, Adverse Reactions, Alerts Substance Reaction Severity [...] Vaccine 01/11/04 Recor ded 1Result Comment: [facility]: 00196-719-29 Medications albuterol CFC free 90 mcg/inh inhalation aerosol See Instructions, 2 puffs Inhalation PRN, 0 Refills, Maintenance Start Date: 06/15/11 Status: Ordered diclofenac sodium 75 mg oral delayed release tablet 1 tablet = 75 mg, By Mouth, 2 times a day, # 60 tablet, 0 Refills, Maintenance, 05/25/21 17:16:00 EDT, EC Tablet, [facility]/pharmacy #1026, Partial fill upon patient request [...] tablet, 0 Refills, Maintenance, 07/05/21 9:25:00 EDT, [facility]/pharmacy #1026, Partial fill upon patient request [...] 04/07/21 16:17:00 EDT, Route to Pharmacy Electronically, [facility]/pharmacy #1026 Tablet, Partial fill upon patient request if the p... Start Date: 04/07/21 Status: Ordered Singulair 10 mg oral tablet 10 mg, 1, tablet, By Mouth, Daily, # 30 tablet, Refills 4, Tot. Refills 4, Maintenance, 02/06/21 15:36:00 EDT, Route to Pharmacy Electronically, [facility]/pharmacy #0693, Partial fill upon patient request if the prescription is for a schedule II opioid drug... Start Date: 02/06/21 Status: Ordered Symbicort 160mcg/4.5mcg Inhaler 2, puffs, Inhalation, 2 times a day, # 6 Gm, Refills 3, Tot. Refills 3, Maintenance, 04/07/21 16:17:00 EDT, Aerosol, Route to Pharmacy Electronically, [id number], [facility]/pharmacy #1026, 155, cm, 04/07/21 15:49:00 EDT, Height, 58... Start Date: 04/07/21 Status: Ordered Problem List Condition Effective Dates Status Health Status Inform ant Chest pain(Confirmed) Active Chronic migraine(Confirmed) Active Mild persistent asthma(Confirmed) Active Social History Social History Type Response Smoking Status Never smoker; Tobacc o user in household: No entered on: 12/12/15 Sex Female
--- OUTSIDE RECORDS SUMMARY | 2023-02-13 12:04 | XMS_ITS | Continuity of Care Document ---
Author Name Unknown Organization [facility] Address [address] [place] [address]- Care Team Providers Care Crystal Flat Grinder Name Role Phone Jenny WILSON, Venancio Smith Primary Care Physician [facility] Date[facility]s): 01/30[facility]21 - 04/23/21 [facility] [address] [place] [address]- Attending Physician: Venancio Alvarado NP Allergies, Adverse [...] 01/11/04 Recor ded 1Result Comment: [facility]: [id number] Medications Aerochamber w/Mask (Small) See Instructions, # [...] PAIN, # 100 Gm, 0 Refills, Maintenance, [facility] STORE [facility], 30, APPLY TO AFFECTED AREA 4 TIMES A DAY NEEDED FOR PAIN, 155, cm, 02/06/21 15:21:00 EDT, Height, 58.2, kg, 11/12/20 19:29... Start Date: 03/06/21 Status: Ordered HydrOXYzine 0 Refills, Maintenance, 10/19/19 22:14:00 EST Start Date: 10/19/19 Status: Ordered Junel Fe .02/19 oral tablet 1 tablet, By Mouth, Daily, [...] 15:36:00 EDT, Route to Pharmacy Electronically, [facility]acy [facility], Partial fill upon patient request if the prescription is for a schedule II opioid drug... Start Date: 02/06/21 Status: Ordered Symbicort 160mcg/4.5mcg Inhaler 2, puffs, Inhalation, 2 times a day, # 6 Gm, Refills 3, Tot. Refills 3, Maintenance, 04/07/21 16:17:00 EDT, Aerosol, Route to Pharmacy Electronically, [id number], [facility]/pharmacy #1026, 155, cm, 04/07/21 15:49:00 EDT, Height, 58... Start Date: 04/07/21 Status: Ordered Problem List Condition Effective Dates Status Health Status Inform ant Chest pain(Confirmed) Active Chronic migraine(Confirmed) Active Mild persistent asthma(Confirmed) Active Social History Social History Type Response Smoking Status Never smoker; Tobacc o user in household: No entered on: 12/12/15 Sex Female
--- OUTSIDE RECORDS SUMMARY | 2023-02-13 12:04 | XMS_ITS | Continuity of Care Document ---
Author Name Unknown Organization [facility] Address [address] [facility], [address] [place] [address]- Care Team Providers Care Airplane Rental Clerk Name Role Phone Jenny WILSON, Venancio Smith Primary Care Physician [place] [facility] [place] 03[place] - 04/07/21 [facility] [address] [facility] [address] [facility], [address] [place] [address]- Attending Physician: Maddi Kitchen MD Referring Physician: Venancio Alvarado NP Allergies, [...] Virus Vaccine 01/11/04 Recor ded 1Result Comment: [facility]: 76640-709-28 Medications Aerochamber w/Mask (Small) See Instructions, # [...] PAIN, # 100 Gm, 0 Refills, Maintenance, [facility], 30, APPLY TO AFFECTED AREA 4 TIMES A DAY NEEDED FOR PAIN, 155, cm, 02/06/21 15:21:00 EDT, Height, 58.2, kg, 11/12/20 19:29... Start Date: 03/06/21 Status: Ordered HydrOXYzine 0 Refills, Maintenance, 10/19/19 22:14:00 EST Start Date: 10/19/19 Status: Ordered Junel Fe 1.5 oral tablet 1 tablet, By Mouth, Daily, [...] 11/12/20 Status: Ordered omeprazole 20 mg oral delayed release tablet 1 tablet = 20 mg, By Mouth, Daily, # 30 tablet, 2 Refills, Maintenance, 04/07/21 16:16:00 EDT, CR Tablet, [facility], Partial fill upon patient request if the prescription is for a schedule II opioid drug., 155, cm, 04/07/21 15:49:00 EDT, Heig... Start Date: 04/07/21 Status: Ordered Senna 8.6 mg oral tablet [...] 15:36:00 EDT, Route to Pharmacy Electronically, [facility], Partial fill upon patient request if the prescription is for a schedule II opioid drug... Start Date: 02/06/21 Status: Ordered Symbicort 160mcg/4.5mcg Inhaler 2, puffs, Inhalation, 2 times a day, # 6 Gm, Refills 3, Tot. Refills 3, Maintenance, 04/07/21 16:17:00 EDT, Aerosol, Route to Pharmacy Electronically, [id number], [facility]/pharmacy #1026, 155, cm, 04/07/21 15:49:00 EDT, Height, 58... Start Date: 04/07/21 Status: Ordered Problem List Condition Effective Dates Status Health Status Inform ant Chest pain(Confirmed) Active Chronic migraine(Confirmed) Active Mild persistent asthma(Confirmed) Active Social History Social History Type Response Smoking Status Never smoker; Tobacc o user in household: No entered on: 12/12/15 Sex Female
--- OUTSIDE RECORDS SUMMARY | 2023-02-13 12:04 | XMS_ITS | Continuity of Care Document ---
Author Name Unknown Organization [facility] Address [address] [address] [facility], [address] [place] [address]- Care Team Providers Care Card Tape Converter Operator Name Role Phone Jenny WILSON, Venancio Smith Primary Care Physician [phone] Encounter [facility] Date(s): 03/31/21 - 04/30/21 [facility] [address] [facility], [address] [place], [place] [address] Attending Physician: AdmLuis gómez Admitting Physician: AdmtrLuis Referring Physician: Admtr, ArJocelyn Allergies, Adverse Reactions, Alerts Substance Reaction Severity [...] ded 1Result Comment: [facility]: 71538-868-30 Medications Aerochamber w/Mask (Small) See Instructions, # [...] # 100 Gm, 0 Refills, Maintenance, [facility] [address], 30, APPLY TO AFFECTED AREA 4 TIMES A DAY NEEDED FOR PAIN, 155, cm, 02/06/21 15:21:00 EDT, Height, 58.2, kg, 11/12/20 19:29... Start Date: 03/06/21 Status: Ordered HydrOXYzine 0 Refills, Maintenance, 10/19/19 22:14:00 EST Start Date: 10/19/19 Status: Ordered June Fe oral tablet 1 tablet, By Mouth, Daily, [...] 15:36:00 EDT, Route to Pharmacy Electronically, [facility], Partial fill upon patient request if the prescription is for a schedule II opioid drug... Start Date: 02/06/21 Status: Ordered Symbicort 160mcg/4.5mcg Inhaler 2, puffs, Inhalation, 2 times a day, # 6 Gm, Refills 3, Tot. Refills 3, Maintenance, 04/07/21 16:17:00 EDT, Aerosol, Route to Pharmacy Electronically, [id number], [facility]/pharmacy #1026, 155, cm, 04/07/21 15:49:00 EDT, Height, 58... Start Date: 04/07/21 Status: Ordered Problem List Condition Effective Dates Status Health Status Inform ant Chest pain(Confirmed) Active Chronic migraine(Confirmed) Active Mild persistent asthma(Confirmed) Active Social History Social History Type Response Smoking Status Never smoker; Tobacc o user in household: No entered on: 12/12/15 Sex Female
--- OUTSIDE RECORDS SUMMARY | 2023-02-13 12:04 | XMS_ITS | Continuity of Care Document ---
Author Name Unknown Organization [facility] Address [address] [place] [address]- Care Team Providers Care Child Care Sitter Name Role Phone Jenny WILSON, Venancio Smith Primary Care Physician [facility] Date[facility]s): 06/09/21 - 07/09/21 [facility] [address] [place] [address]- Allergies, Adverse Reactions, Alerts Substance Reaction Severity [...] Virus Vaccine 01/11/04 Recor ded 1Result Comment: [facility]: [id number] Medications albuterol CFC free 90 mcg/inh inhalation aerosol See Instructions, 2 puffs Inhalation PRN, 0 Refills, Maintenance Start Date: 06/15/11 Status: Ordered diclofenac sodium 75 mg oral delayed release tablet 1 tablet = 75 mg, By Mouth, 2 times a day, # 60 tablet, 0 Refills, Maintenance, 05/25/21 17:16:00 EDT, EC Tablet, [facility]/pharmacy #1026, Partial fill upon patient [...] tablet, 0 Refills, Maintenance, 07/05/21 9:25:00 EDT, [facility]/pharmacy #1026, Partial fill upon patient [...] 04/07/21 16:17:00 EDT, Route to Pharmacy Electronically, [facility]/pharmacy #1026 Tablet, Partial fill upon patient request if the p... Start Date: 04/07/21 Status: Ordered Singulair 10 mg oral tablet 10 mg, 1, tablet, By Mouth, Daily, # 30 tablet, Refills 4, Tot. Refills 4, Maintenance, 02/06/21 15:36:00 EDT, Route to Pharmacy Electronically, [facility]/pharmacy #0693, Partial fill upon patient request if the prescription is for a schedule II opioid drug... Start Date: 02/06/21 Status: Ordered Symbicort 160mcg/4.5mcg Inhaler 2, puffs, Inhalation, 2 times a day, # 6 Gm, Refills 3, Tot. Refills 3, Maintenance, 04/07/21 16:17:00 EDT, Aerosol, Route to Pharmacy Electronically, [id number], [facility]/pharmacy #1026, 155, cm, 04/07/21 15:49:00 EDT, Height, 58... Start Date: 04/07/21 Status: Ordered Problem List Condition Effective Dates Status Health Status Inform ant Chest pain(Confirmed) Active Chronic migraine(Confirmed) Active Mild persistent asthma(Confirmed) Active Social History Social History Type Response Smoking Status Never smoker; Tobacc o user in household: No entered on: 12/12/15 Sex Female
--- OUTSIDE RECORDS SUMMARY | 2023-02-13 12:04 | XMS_ITS | Continuity of Care Document ---
Author Name Unknown Organization [facility] Address [address] [address]- Care Team Providers Care Sleever Name Role Phone Charles Mccoy DO Primary Care Physician [facility] Date[facility]s): 10/23/22 - 11/22/22 [facility] [address] [address] Allergies, Adverse Reactions, Alerts Substance Reaction Severity [...] Vaccine 01/11/04 Recor ded 1Result Comment: [facility]: [id number] Medications albuterol CFC free 90 mcg/inh inhalation aerosol See Instructions, 2 puffs Inhalation PRN, 0 Refills, Maintenance Start Date: 06/15/11 Status: Ordered albuterol CFC free 90 mcg/inh inhalation aerosol 1, puffs, Inhalation, Every 6 hours, PRN, # 6.7 Gm, Refills 5, Tot. Refills 5, Maintenance, 08/28/21 13:56:00 EST, Aerosol, Route to Pharmacy Electronically, [id number], [facility]/pharmacy #1026, 154, cm, 07/05/21 9:00:00 EDT, Heig... Start Date: 08/28/21 Status: Ordered diclofenac sodium 75 mg oral delayed release tablet 1 tablet = 75 mg, By Mouth, 2 times a day, # 60 tablet, 0 Refills, Maintenance, 05/25/21 17:16:00 EDT, EC Tablet, [facility]/pharmacy #1026, Partial fill upon patient request if [...] Replace Required Details, Route to Pharmacy Electronically, [facility] [address], 154, cm, 07/05/21 9:00:00 EDT, Height, 54, kg, 05/20/21 16:36:00 EDT, Dry Weight Start Date: 02/10/22 Status: Ordered Nature's Bounty Probiotic oral tablet 1 tablet, By Mouth, Daily, # 30 tablet, 0 Refills, Maintenance, 07/05/21 9:25:00 EDT, [facility]/pharmacy #1026, Partial fill upon patient request if [...] 04/07/21 16:17:00 EDT, Route to Pharmacy Electronically, [facility]/pharmacy #1026 Tablet, Partial fill upon patient request if the p... Start Date: 04/07/21 Status: Ordered Singulair 10 mg oral tablet 10 mg, 1, tablet, By Mouth, Daily, # 30 tablet, Refills 4, Tot. Refills 4, Maintenance, 02/06/21 15:36:00 EDT, Route to Pharmacy Electronically, [facility]/pharmacy #0693, Partial fill upon patient request if the prescription is for a schedule II opioid drug... Start Date: 02/06/21 Status: Ordered Symbicort 160mcg/4.5mcg Inhaler 2, puffs, Inhalation, 2 times a day, # 6 Gm, Refills 3, Tot. Refills 3, Maintenance, 04/07/21 16:17:00 EDT, Aerosol, Route to Pharmacy Electronically, [id number], [facility]/pharmacy #1026, 155, cm, 04/07/21 15:49:00 EDT, Height, 58... Start Date: 04/07/21 Status: Ordered Problem List Condition Confirmation Course Effective Dates Status Health St atus Informant Chest pain Confirmed Active Chronic migraine Confirmed Active Mild persistent asthma Confirmed Active Social History Social History Type Response Smoking Status Never smoker; Tobacc o user in household: No entered on: 12/12/15 Sex Female Patient Care team information Care Team Personnel Name: Charles Mccoy DO Position: [facility] Primary Care Physician Member Role: PCP Address: Address: [address] [place] [address] Care Team Related Persons Name: LISE BEAVERS Address: home [address] [place] [address] Name: SUMAN CRYSTAL Address: home [address] [place] [address] Name: [address] Address[address] home [address] [facility] [address] [place] [id number] Name: [address] Address[address] home [address] [facility] [facility] [address] [place] [address] Name: [address] Address: home [address] [facility] [address] [address] [place] [id number] Name: GRACIELA CAZARES
--- OUTSIDE RECORDS SUMMARY | 2023-02-13 12:04 | XMS_ITS | Continuity of Care Document ---
Author Name Unknown Organization [facility] Address [address] [place] [address]- Care Team Providers Care Office Assistant Receptionist Name Role Phone Jenny WILSON, Venancio Smith Primary Care Physician [facility] Date[facility]): [facility] - 02/19/21 [facility] [address] [place], [place] [address] Attending Physician: Luis Boudreaux Admitting Physician: Luis [...] 3 Refills, Maintenance, 01/04/20 9:25:00 EDT, Tablet, [facility]/pharmacy #1026, 1 tablet By Mouth [...] 10:01:00 EDT, Aerosol, Route to Pharmacy Electronically, [id number], [facility]/pharmacy #[id number], 155, cm, 02/06/21 15:21:00 EDT, Height, 58... Start Date: 02/08/21 Status: Ordered Voltaren 1% topical gel 1 application, Topically, 4 times a day, PRN for pain, # 100 Gm, 0 Refills, Maintenance, 02/06/21 15:58:00 EDT, Gel, [facility]/pharmacy #[id number], Partial fill upon patient [...]
--- OUTSIDE RECORDS SUMMARY | 2023-02-13 12:04 | XMS_ITS | Continuity of Care Document ---
Author Name Unknown Organization [facility] Address [address] [place] [address]- Care Team Providers Care Correction Officer Penitentiary Name Role Phone Jenny WILSON, Venancio Smith Primary Care Physician [facility] Date[facility]): 05/25/21 - 06/01/21 [facility] [address] [place] [address]- Attending Physician: Not on Staff, Attending MD [...] Virus Vaccine 01/11/04 Recor ded 1Result Comment: [facility]: 32718-858-99 Medications albuterol CFC free 90 mcg/inh inhalation aerosol See Instructions, 2 puffs Inhalation PRN, 0 Refills, Maintenance Start Date: 06/15/11 Status: Ordered diclofenac sodium 75 mg oral delayed release tablet 1 tablet = 75 mg, By Mouth, 2 times a day, # 60 tablet, 0 Refills, Maintenance, 05/25/21 17:16:00 EDT, EC Tablet, [facility]/pharmacy #[id number], Partial fill upon [...] 04/07/21 16:17:00 EDT, Route to Pharmacy Electronically, [facility]/pharmacy #1026 Tablet, Partial fill upon patient request if the p... Start Date: 04/07/21 Status: Ordered Singulair 10 mg oral tablet 10 mg, 1, tablet, By Mouth, Daily, # 30 tablet, Refills 4, Tot. Refills 4, Maintenance, 02/06/21 15:36:00 EDT, Route to Pharmacy Electronically, [facility]/pharmacy #[id number], Partial fill upon patient request if the prescription is for a schedule II opioid drug... Start Date: 02/06/21 Status: Ordered Symbicort 160mcg/4.5mcg Inhaler 2, puffs, Inhalation, 2 times a day, # 6 Gm, Refills 3, Tot. Refills 3, Maintenance, 04/07/21 16:17:00 EDT, Aerosol, Route to Pharmacy Electronically, [id number], [facility]/pharmacy #1026, 155, cm, 04/07/21 15:49:00 EDT, Height, 58... Start Date: 04/07/21 Status: Ordered Problem List Condition Effective Dates Status Health Status Inform ant Chest pain(Confirmed) Active Chronic migraine(Confirmed) Active Mild persistent asthma(Confirmed) Active Vital Signs Most recent to oldest [Reference Range]: 1 Height 154 cm (05/25/21 5:04 PM) Oxygen Saturation [94-100 %] 100 % (05/25/21 5:04 PM) Pulse Rate [55-90 bpm] 69 bpm (05/25/21 5:04 PM) Blood Pressure [71-110/30-71 mm Hg] 111/ 69mm Hg *H* (05/25/21 5:04 PM) Respiratory Rate [16-30 br/min] 20 br/mi n (05/25/21 5:04 PM) Temperature [96.8-100.4 DegF] 98.2 DegF (05/25/21 5:04 PM) Mode of Delivery (Oxygen) Room air (05/25/21 5:04 PM) Blood pressure sites Arm, right (05/25/21 5:04 PM) Social History Social History Type Response Smoking Status Never smoker; Tobacc o user in household: No entered on: 12/12/15 Sex Female
--- OUTSIDE RECORDS SUMMARY | 2023-02-13 12:04 | XMS_ITS | Continuity of Care Document ---
Author Name Unknown Organization [facility] Address [address] [place] [address]- Care Team Providers Care Front End Specialist Name Role Phone Jenny WILSON, Venancio Smith Primary Care Physician [facility] Date[facility]s): 06/07/21 - 07/07/21 [facility] [address] [place] [address]- Allergies, Adverse Reactions, Alerts Substance Reaction Severity [...] Virus Vaccine 01/11/04 Recor ded 1Result Comment: [facility]: 99708-938-27 Medications albuterol CFC free 90 mcg/inh inhalation aerosol See Instructions, 2 puffs Inhalation PRN, 0 Refills, Maintenance Start Date: 06/15/11 Status: Ordered diclofenac sodium 75 mg oral delayed release tablet 1 tablet = 75 mg, By Mouth, 2 times a day, # 60 tablet, 0 Refills, Maintenance, 05/25/21 17:16:00 EDT, EC Tablet, [facility]/pharmacy #[id number], Partial fill upon patient [...] 0 Refills, Maintenance, 07/05/21 9:25:00 EDT, [facility]/pharmacy #1026, Partial fill upon patient [...] 15:36:00 EDT, Route to Pharmacy Electronically, [facility]/pharmacy #[id number], Partial fill upon patient request if the prescription is for a schedule II opioid drug... Start Date: 02/06/21 Status: Ordered Symbicort 160mcg/4.5mcg Inhaler 2, puffs, Inhalation, 2 times a day, # 6 Gm, Refills 3, Tot. Refills 3, Maintenance, 04/07/21 16:17:00 EDT, Aerosol, Route to Pharmacy Electronically, [id number], [facility]/pharmacy #[id number], 155, cm, 04/07/21 15:49:00 EDT, Height, 58... Start Date: 04/07/21 Status: Ordered Zofran 4 mg oral tablet 1 tablet = 4 mg, By Mouth, Every 8 hours, PRN Vomiting, for 3 days, # 10 tablet, 0 Refills, Acute 07/08/21 9:21:00 EDT, 07/05/21 9:21:00 EDT, Tablet, [facility]26, Partial fill upon patient request if the prescription is for a schedule II opioid... Start Date: 07/05/21 Stop Date: 07/08/21 Status: Ordered Problem List Condition Effective Dates Status Health Status Inform ant Chest pain(Confirmed) Active Chronic migraine(Confirmed) Active Mild persistent asthma(Confirmed) Active Social History Social History Type Response Smoking Status Never smoker; Tobacc o user in household: No entered on: 12/12/15 Sex Female
--- OUTSIDE RECORDS SUMMARY | 2023-02-13 12:04 | XMS_ITS | Continuity of Care Document ---
Author Name Unknown Organization [facility] Address [address] [place] [address]- Care Team Providers Care Call Person Name Role Phone Aldo RIVAS, Teto Capone Primary Care Physicia n Encounter [facility] Date(s): 10/19/19 - 10/20/[address] [address]- [facility] Discharge Disposition: A-D/C Home Attending Physician: Cameron Wagner MD Admitting Physician: Cameron Wagner MD Referring Physician: Not on Staff, Referring [...] 11/08/19 9:53:00 EST, 10/09/19 9:53:00 EST, Tablet, [id number], 157, cm, 10/09/19 6:47... Start Date: 10/09/19 Stop Date: 11/08/19 Status: Ordered Problem List Condition Effective Dates Status Health Status Inform ant Chest pain(Confirmed) Active Chronic migraine(Confirmed) Active Mild persistent asthma(Confirmed) Active Well child(Confirmed) Active Vital Signs Most recent to oldest [Reference Range]: 1 2 3 Height 155.5 cm (10/20/19 1:04 AM) 155.5 cm (10/19/19 10:05 PM) 155.5 cm (10/19/19 9:10 PM) Weight 53.3 kg (10/20/19 1:04 AM) 53.3 kg (10/19/19 10:05 PM) 53.3 kg (10/19/19 9:10 PM) Oxygen Saturation [94-100 %] 100 % (10/20/19 1:04 AM) 100 % (10/19/19 9:10 PM) Pulse Rate [55-90 bpm] 75 bpm (10/20/19 1:04 AM) 85 bpm (10/19/19 9:10 PM) Body Mass Index [18.5-24.99] 22.04 (10/20/19 1:04 AM) 22.04 (10/19/19 9:10 PM) Blood Pressure [80-130/50-80 mm Hg] 102/51mm Hg (10/20/19 1:04 AM) 105/78mm Hg (10/19/19 9:10 PM) Respiratory Rate [16-30 br/min] 18 br/min (10/20/19 1:04 AM) 20 br/min (10/19/19 9:10 PM) Temperature [96.8-100.4 DegF] 98.1 DegF (10/20/19 1:04 AM) 98.2 DegF (10/19/19 9:10 PM) Mode of Delivery (Oxygen) Room air (10/20/19 1:04 AM) Room air (10/19/19 9:10 PM) Blood pressure sites Arm, left (10/20/19 1:04 AM) Arm, left (10/19/19 9:10 PM) Temperature Route Oral (10/20/19 1:04 AM) Oral (10/19/19 9:10 PM) Dry Weight 53.3 kg (10/20/19 1:04 AM) 53.3 kg (10/19/19 10:05 PM) 53.3 kg (10/19/19 9:10 PM) Weight Obtained Via Standing scale (10/19/19 9:10 PM) Dry Weight Obtained Via Standing scale (10/19/19 9:10 PM) Social History Social History Type Response Smoking Status Never smoker; Tobacc o user in household: No entered on: 12/12/15 Sex Female
--- OUTSIDE RECORDS SUMMARY | 2023-02-13 12:04 | XMS_ITS | Continuity of Care Document ---
Author Name Unknown Organization [facility] Address [address] [place] [address]- Care Team Providers Care Fashion Marketer Name Role Phone Jenny WILSON, Venancio Smith Primary Care Physician Encounter [facility] [id number] Date(s): 03/08/21 - 03/15/21 [facility] [address] [place] [address]- Encounter Diagnosis Chest pain(Discharge Diagnosis) - 03/12/21 Mild persistent asthma(Discharge Diagnosis) - 03/12/21 Constipation(Discharge Diagnosis) - 03/12/21 Homelessness(Discharge Diagnosis) - 03/12/21 Attending Physician: Venancio Alvarado NP Allergies, Adverse [...] Virus Vaccine 01/11/04 Recor ded 1Result Comment: [facility]: 55928-593-97 Medications Aerochamber w/Mask (Small) See Instructions, # [...] PAIN, # 100 Gm, 0 Refills, Maintenance, [facility], 30, APPLY TO AFFECTED AREA 4 TIMES A DAY NEEDED FOR PAIN, 155, cm, 02/06/21 15:21:00 EDT, Height, 58.2, kg, 11/12/20 19:29... Start Date: 03/06/21 Status: Ordered HydrOXYzine 0 Refills, Maintenance, 10/19/19 22:14:00 EST Start Date: 10/19/19 Status: Ordered oral tablet 1 tablet, By Mouth, Daily, # 84 tablet, 3 Refills, Maintenance, 01/04/20 9:25:00 EDT, Tablet, [facility]/pharmacy #1026, 1 tablet By Mouth Daily, 157, [...] Daily, # 30 tablet, 2 Refills, Maintenance, 03/08/21 16:20:00 EDT, CR Tablet, [facility]/pharmacy #2025, Partial fill upon patient request if the prescription is for a schedule II opioid drug., 155, cm, 03/08/21 15:34:00 EDT, Heig... Start Date: 03/08/21 Status: Ordered Qvar Redihaler 80 mcg/inh inhalation aerosol = 80 mcg, Inhalation, 2 times a day, # 1 each, 2 Refills, Maintenance, 03/08/21 16:17:00 EDT, [facility]/pharmacy #2025, Partial fill upon patient request if the prescription is for a schedule II opioid drug., 80 mcg Inhalation 2 times a day, 155, cm, ... Start Date: 03/08/21 Status: Ordered Senna 8.6 mg oral tablet 17.2 mg, 2, tablet, By Mouth, Daily at bedtime, PRN, # 100 tablet, Refills 0, Tot. Refills 0, Maintenance, for constipation, 03/10/21 7:43:00 EDT, Route to Pharmacy Electronically, [facility]/pharmacy #[id number], Partial fill upon patient request if the pr... Start Date: 03/10/21 Status: Ordered Singulair 10 mg oral tablet 10 mg, 1, tablet, By Mouth, Daily, # 30 tablet, Refills 4, Tot. Refills 4, Maintenance, 02/06/21 15:36:00 EDT, Route to Pharmacy Electronically, [facility]/pharmacy #[id number], Partial fill upon patient request if the prescription is for a schedule II opioid drug... Start Date: 02/06/21 Status: Ordered Symbicort 160mcg/4.5mcg Inhaler 2, puffs, Inhalation, 2 times a day, # 6 Gm, Refills 0, Tot. Refills 0, Maintenance, 02/08/21 10:01:00 EDT, Aerosol, Route to Pharmacy Electronically, [id number], [facility]/pharmacy #[id number], 155, cm, 02/06/21 15:21:00 EDT, Height, 58... Start Date: 02/08/21 Status: Ordered Problem List Condition Effective Dates Status Health Status Inform ant Chest pain(Confirmed) Active Chronic migraine(Confirmed) Active Mild persistent asthma(Confirmed) Active Diagnosis Diagnosis Type Effective Dates Health Status Clinical Service Informant Chest pain Discharge Diagnosis 03/12/21 Mild persistent asthma Discharge Diagnosis 03/12/21 Constipation Discharge Diagnosis 03/12/21 Homelessness Discharge Diagnosis 03/12/21 Vital Signs Most recent to oldest [Reference Range]: 1 Height 155 cm (03/08/21 3:34 PM) Weight 51.4 kg (03/08/21 3:34 PM) Pulse Rate [55-90 bpm] 81 bpm (03/08/21 3:34 PM) Body Mass Index [18.5-24.99] 21.39 (03/08/21 3:34 PM) Blood Pressure [71-110/30-71 mm Hg] 112/ 84mm Hg *H* (03/08/21 3:34 PM) Respiratory Rate [16-30 br/min] 18 br/mi n (03/08/21 3:34 PM) Blood pressure sites Arm, left (03/08/21 3:34 PM) Weight Obtained Via Standing scale (03/08/21 3:34 PM) Social History Social History Type Response Smoking Status Never smoker; Tobacc o user in household: No entered on: 12/12/15 Sex Female
--- OUTSIDE RECORDS SUMMARY | 2023-02-13 12:04 | XMS_ITS | Continuity of Care Document ---
Author Name Unknown Organization [facility] Address [address] [place] [address]- Care Team Providers Care Director Sports Name Role Phone Jenny WILSON, Venancio Smith Primary Care Physician [facility] Date[facility]s): 04/07/21 - 04/14/21 [facility] [address] [place] [address]- Encounter Diagnosis Mild persistent asthma(Discharge Diagnosis) - 04/09/21 Constipation(Discharge Diagnosis) - 04/09/21 Attending Physician: Venancio Alvarado NP Allergies, Adverse [...] Vaccine 01/11/04 Recor ded 1Result Comment: [facility]: 25993-959-74 Medications Aerochamber w/Mask (Small) See Instructions, # [...] PAIN, # 100 Gm, 0 Refills, Maintenance, [facility], 30, APPLY TO AFFECTED AREA 4 TIMES [...] 15:36:00 EDT, Route to Pharmacy Electronically, [id number], Partial fill upon patient request if the prescription is for a schedule II opioid drug... Start Date: 02/06/21 Status: Ordered Symbicort 160mcg/4.5mcg Inhaler 2, puffs, Inhalation, 2 times a day, # 6 Gm, Refills 3, Tot. Refills 3, Maintenance, 04/07/21 16:17:00 EDT, Aerosol, Route to Pharmacy Electronically, [id number], [facility]/pharmacy #1026, 155, cm, 04/07/21 15:49:00 EDT, Height, 58... Start Date: 04/07/21 Status: Ordered Problem List Condition Effective Dates Status Health Status Inform ant Chest pain(Confirmed) Active Chronic migraine(Confirmed) Active Mild persistent asthma(Confirmed) Active Diagnosis Diagnosis Type Effective Dates Health Status Clinical Service Informant Mild persistent asthma Discharge Diagnosis 04/09/21 Constipation Discharge Diagnosis 04/09/21 Vital Signs Most recent to oldest [Reference Range]: 1 Height 155 cm (04/07/21 3:49 PM) Social History Social History Type Response Smoking Status Never smoker; Tobacc o user in household: No entered on: 12/12/15 Sex Female
--- OUTSIDE RECORDS SUMMARY | 2023-02-13 12:04 | XMS_ITS | Continuity of Care Document ---
Author Name Unknown Organization [facility] Address [address] [place] [address]- Care Team Providers Care Food Photographer Name Role Phone Aldo RIVAS, Teto Capone Primary Care Physicia n [id number]11[facility] [address] [place] [address]- Attending Physician: Fidelina RIVAS, Maddi Gentile Referring Physician: Aldo RIVAS, Teto Capone Allergies, Adverse Reactions, Alerts Substance Reaction Severity Status NKA Active Medications albuterol CFC free 90 mcg/inh inhalation aerosol See Instructions, 2 puffs Inhalation PRN, 0 Refills, Maintenance Start Date: 06/15/11 Status: Ordered ibuprofen 600 mg oral tablet 600 mg, 1, tablet, By Mouth, Every 6 hours, PRN, Refills 0, Maintenance, Migraine Headache, 03/13/18 14:11:09 EDT Start Date: 03/13/18 Status: Ordered 1.530 oral tablet 1 tablet, By Mouth, [...] 14:11:01 EDT Start Date: 03/13/18 Status: Ordered Vyvanse By Mouth, Daily in [...] Mild persistent asthma(Confirmed) Active Well child(Confirmed) Active Procedures Procedure Date Related Diagnosis Body Site Status [place] teeth 04/2018 Completed Vital Signs Most recent to oldest [Reference Range]: 1 Height 153 cm (09/04/19 12:59 PM) Weight 53.57 kg (09/04/19 12:59 PM) Body Mass Index [18.5-24.99] 22.88 (09/04/19 12:59 PM) Blood Pressure [80-130/50-80 mm Hg] 98/6 2mm Hg (09/04/19 12:59 PM) Blood pressure sites Arm, right (09/04/19 12:59 PM) Weight Obtained Via Standing scale (09/04/19 12:59 PM) Social History Social History Type Response Smoking Status Never smoker; Tobacc o user in household: No entered on: 12/12/15 Sex Female
--- OUTSIDE RECORDS SUMMARY | 2023-02-13 12:04 | XMS_ITS | Continuity of Care Document ---
Author Name Unknown Organization [facility] Address [address] [place] [address]- Care Team Providers Care Band Log Mill And Carriage Operator Name Role Phone Jenny WILSON, Venancio Smith Primary Care Physician [phone] [facility] Date(s): 03/09/21 - 04/08/21 [facility] [address] [place] [address]- Allergies, Adverse Reactions, Alerts Substance Reaction Severity [...] Virus Vaccine 01/11/04 Recor ded 1Result Comment: [facility]: 03726-463-32 Medications Aerochamber w/Mask (Small) See Instructions, # [...] PAIN, # 100 Gm, 0 Refills, Maintenance, [facility] [address], 30, APPLY TO AFFECTED AREA 4 TIMES A DAY NEEDED FOR PAIN, 155, cm, 02/06/21 15:21:00 EDT, Height, 58.2, kg, 11/12/20 19:29... Start Date: 03/06/21 Status: Ordered HydrOXYzine 0 Refills, Maintenance, 10/19/19 22:14:00 EST Start Date: 10/19/19 Status: Ordered Junel Fe 1.530 oral tablet 1 tablet, By Mouth, Daily, # 84 tablet, 3 Refills, Maintenance, 01/04/20 9:25:00 EDT, Tablet, [facility]/pharmacy #1026, 1 tablet By Mouth Daily, [...] 16:17:00 EDT, Aerosol, Route to Pharmacy Electronically, [id number], [facility]/pharmacy #1026, 155, cm, 04/07/21 15:49:00 EDT, Height, 58... Start Date: 04/07/21 Status: Ordered Problem List Condition Effective Dates Status Health Status Inform ant Chest pain(Confirmed) Active Chronic migraine(Confirmed) Active Mild persistent asthma(Confirmed) Active Social History Social History Type Response Smoking Status Never smoker; Tobacc o user in household: No entered on: 12/12/15 Sex Female
--- OUTSIDE RECORDS SUMMARY | 2023-02-13 12:04 | XMS_ITS | Continuity of Care Document ---
Author Name Unknown Organization [facility] Address [address] [place] [address]- Care Team Providers Care Lime Boiler Name Role Phone Joanne WILSON, Tomasa Link Primary Care Physician Encounter [facility] Date(s): 10/24/21 - 11/24/21 [facility] [address] [place] [address]- Attending Physician: Yolanda RIVAS, Dorcas Cox Referring Physician: Brooke Olivas NP Allergies, Adverse Reactions, Alerts Substance Reaction [...] 1Result Comment: [facility]: 26157-193-60 Medications albuterol CFC free 90 mcg/inh inhalation aerosol See Instructions, 2 puffs Inhalation PRN, 0 Refills, Maintenance Start Date: 06/15/11 Status: Ordered albuterol CFC free 90 mcg/inh inhalation aerosol 1, puffs, Inhalation, Every 6 hours, PRN, # 6.7 Gm, Refills 5, Tot. Refills 5, Maintenance, 08/28/21 13:56:00 EST, Aerosol, Route to Pharmacy Electronically, [id number], [facility]/pharmacy #1026, 154, cm, 07/05/21 9:00:00 EDT, Aaliyah... Start Date: 08/28/21 Status: Ordered diclofenac sodium 75 mg oral delayed release tablet 1 tablet = 75 mg, By Mouth, 2 times a day, # 60 tablet, 0 Refills, Maintenance, 05/25/21 17:16:00 EDT, EC Tablet, [facility]/pharmacy #1026, Partial fill upon patient request [...] tablet, 0 Refills, Maintenance, 07/05/21 9:25:00 EDT, [facility]/pharmacy #1026, Partial fill upon patient request [...] 04/07/21 16:17:00 EDT, Route to Pharmacy Electronically, [facility]/pharmacy #1026 Tablet, Partial fill upon patient request if the p... Start Date: 04/07/21 Status: Ordered Singulair 10 mg oral tablet 10 mg, 1, tablet, By Mouth, Daily, # 30 tablet, Refills 4, Tot. Refills 4, Maintenance, 02/06/21 15:36:00 EDT, Route to Pharmacy Electronically, [facility]/pharmacy #[id number], Partial fill upon patient request if the prescription is for a schedule II opioid drug... Start Date: 02/06/21 Status: Ordered Symbicort 160mcg/4.5mcg Inhaler 2, puffs, Inhalation, 2 times a day, # 6 Gm, Refills 3, Tot. Refills 3, Maintenance, 04/07/21 16:17:00 EDT, Aerosol, Route to Pharmacy Electronically, [id number], [facility]/pharmacy #1026, 155, cm, 04/07/21 15:49:00 EDT, Height, 58... Start Date: 04/07/21 Status: Ordered Problem List Condition Effective Dates Status Health Status Inform ant Chest pain(Confirmed) Active Chronic migraine(Confirmed) Active Mild persistent asthma(Confirmed) Active Social History Social History Type Response Smoking Status Never smoker; Tobacc o user in household: No entered on: 12/12/15 Sex Female
--- OUTSIDE RECORDS SUMMARY | 2023-02-13 12:04 | XMS_ITS | Continuity of Care Document ---
Author Name Unknown Organization [facility] Address [address] [place] [address]- Care Team Providers Care Head Tennis Coach Name Role Phone Jenny WILSON, Venancio Smith Primary Care Physician [facility] Date[facility]s): 03/13[facility]21 - 04/12/21 [facility] [address] [place] [address]- Allergies, Adverse Reactions, Alerts Substance Reaction Severity [...] Virus Vaccine 01/11/04 Recor ded 1Result Comment: [facility]: 61029-683-61 Medications Aerochamber w/Mask (Small) See Instructions, # [...] PAIN, # 100 Gm, 0 Refills, Maintenance, [facility] [address], 30, APPLY TO AFFECTED AREA 4 TIMES A DAY NEEDED FOR PAIN, 155, cm, 02/06/21 15:21:00 EDT, Height, 58.2, kg, 11/12/20 19:29... Start Date: 03/06/21 Status: Ordered HydrOXYzine 0 Refills, Maintenance, 10/19/19 22:14:00 EST Start Date: 10/19/19 Status: Ordered Junel Fe 1.530 oral tablet 1 tablet, By Mouth, Daily, # 84 tablet, 3 Refills, Maintenance, 01/04/20 9:25:00 EDT, Tablet, [facility]/pharmacy #1026, 1 tablet By Mouth [...] 16:17:00 EDT, Aerosol, Route to Pharmacy Electronically, [id number], [facility]/pharmacy #1026, 155, cm, 04/07/21 15:49:00 EDT, Height, 58... Start Date: 04/07/21 Status: Ordered Problem List Condition Effective Dates Status Health Status Inform ant Chest pain(Confirmed) Active Chronic migraine(Confirmed) Active Mild persistent asthma(Confirmed) Active Social History Social History Type Response Smoking Status Never smoker; Tobacc o user in household: No entered on: 12/12/15 Sex Female
--- OUTSIDE RECORDS SUMMARY | 2023-02-13 12:04 | XMS_ITS | Continuity of Care Document ---
Author Name Unknown Organization [facility] Address [address] [place] [address]- Care Team Providers Care Medical Laboratory Manager Name Role Phone Jenny WILSON, Venancio Smith Primary Care Physician [facility] Date(s): 06/15/21 - 07/15/21 [facility] [address] [place] [address]- Allergies, Adverse Reactions, Alerts Substance Reaction Severity [...] Virus Vaccine 01/11/04 Recor ded 1Result Comment: [facility]: [id number] Medications albuterol CFC free 90 mcg/inh inhalation aerosol See Instructions, 2 puffs Inhalation PRN, 0 Refills, Maintenance Start Date: 06/15/11 Status: Ordered diclofenac sodium 75 mg oral delayed release tablet 1 tablet = 75 mg, By Mouth, 2 times a day, # 60 tablet, 0 Refills, Maintenance, 05/25/21 17:16:00 EDT, EC Tablet, [facility]/pharmacy #[id number], Partial fill upon patient request [...] tablet, 0 Refills, Maintenance, 07/05/21 9:25:00 EDT, [facility]/pharmacy #[id number], Partial fill upon patient request [...] 04/07/21 16:17:00 EDT, Route to Pharmacy Electronically, [facility]/pharmacy #[id number] Tablet, Partial fill upon patient request if the p... Start Date: 04/07/21 Status: Ordered Singulair 10 mg oral tablet 10 mg, 1, tablet, By Mouth, Daily, # 30 tablet, Refills 4, Tot. Refills 4, Maintenance, 02/06/21 15:36:00 EDT, Route to Pharmacy Electronically, [facility]/pharmacy #[id number], Partial fill upon patient request if the prescription is for a schedule II opioid drug... Start Date: 02/06/21 Status: Ordered Symbicort 160mcg/4.5mcg Inhaler 2, puffs, Inhalation, 2 times a day, # 6 Gm, Refills 3, Tot. Refills 3, Maintenance, 04/07/21 16:17:00 EDT, Aerosol, Route to Pharmacy Electronically, [id number], [facility]/pharmacy #[id number], 155, cm, 04/07/21 15:49:00 EDT, Height, 58... Start Date: 04/07/21 Status: Ordered Problem List Condition Effective Dates Status Health Status Inform ant Chest pain(Confirmed) Active Chronic migraine(Confirmed) Active Mild persistent asthma(Confirmed) Active Social History Social History Type Response Smoking Status Never smoker; Tobacc o user in household: No entered on: 12/12/15 Sex Female
--- OUTSIDE RECORDS SUMMARY | 2023-02-13 12:04 | XMS_ITS | Continuity of Care Document ---
Author Name Unknown Organization [facility] Address [address], [address] [place] [address]- Care Team Providers Care Echocardiography Technologist Name Role Phone Aldo RIVAS, Teto Capone Primary Care Physicia n Encounter [facility] [id number] Date(s): 01/04/20 - 01/14/20 [facility] [address] [place] [address]- Attending Physician: Luis Boudreaux Admitting Physician: Luis Boudreaux Referring Physician: Luis Boudreaux Allergies, Adverse Reactions, Alerts Substance Reaction Severity [...] 80 mcg, Inhalation, Daily, 2 puffs, Maintenance, 03/21/16 9:28:53 EDT Start Date: 12/12/15 Status: Ordered [...]
--- OUTSIDE RECORDS SUMMARY | 2023-02-13 12:04 | XMS_ITS | Continuity of Care Document ---
Author Name Unknown Organization [facility] Address [address] [place] [address]- Care Team Providers Care Pipe Assembly Worker Name Role Phone Jenny WILSON, Venancio Smith Primary Care Physician [facility] Date(s): 06/15/21 - 07/15/21 [facility] [address] [place] [address]- Attending Physician: Luis Boudreaux Admitting Physician: AdmLuis [...] 06/10/15 Recorded influenza virus vaccine, inactivated 06/17/20 Vipni rded influenza virus vaccine, inactivated 06/23/18 Vipin [...] Virus Vaccine 01/11/04 Recor ded 1Result Comment: [facility]: 02553-606-70 Medications albuterol CFC free 90 mcg/inh inhalation [...] 16:17:00 EDT, Aerosol, Route to Pharmacy Electronically, [id number], [facility]/pharmacy #[id number], 155, cm, [...]
--- OUTSIDE RECORDS SUMMARY | 2023-02-13 12:04 | XMS_ITS | Continuity of Care Document ---
Author Name Unknown Organization [facility] Address [address] [place] [address]- Care Team Providers Care Medical Imaging Specialist Name Role Phone Not on Staff, PCP Primary Care Physician Unavail able [place] [facility] Date[place] 12/28/20 - 01/27/21 [facility] [address] [place], [place] [address] Allergies, Adverse Reactions, Alerts Substance Reaction Severity [...] opioid drug. Start Date: 11/12/20 Status: Ordered Problem List Condition Effective Dates Status Health Status Inform ant Chest pain(Confirmed) Active Chronic migraine(Confirmed) Active Mild persistent asthma(Confirmed) Active Social History Social History Type Response Smoking Status Never smoker; Tobacc o user in household: No entered on: 12/12/15 Sex Female
--- OUTSIDE RECORDS SUMMARY | 2023-02-13 12:04 | XMS_ITS | Continuity of Care Document ---
Author Name Unknown Organization [facility] Address [address] [place] [address]- Care Team Providers Care E Commerce Merchant Name Role Phone Jenny WILSON, Venancio Smith Primary Care Physician [phone] Encounter [facility] Date(s): 04/11/21 - 05/11/21 [facility] [address] [place] [address]- Allergies, Adverse Reactions, Alerts Substance Reaction Severity [...] Virus Vaccine 01/11/04 Recor ded 1Result Comment: [facility]: [id number] Medications Aerochamber w/Mask (Small) See Instructions, # [...] PAIN, # 100 Gm, 0 Refills, Maintenance, [id number], 30, APPLY TO AFFECTED AREA 4 TIMES A DAY NEEDED FOR PAIN, 155, cm, 02/06/21 15:21:00 EDT, Height, 58.2, kg, 11/12/20 19:29... Start Date: 03/06/21 Status: Ordered HydrOXYzine 0 Refills, Maintenance, 10/19/19 22:14:00 EST Start Date: 10/19/19 Status: Ordered Junel Fe 1.530 oral tablet 1 tablet, By Mouth, Daily, # 84 tablet, 3 Refills, Maintenance, 01/04/20 9:25:00 EDT, Tablet, [facility]/pharmacy #[id number], 1 tablet By Mouth [...] 16:17:00 EDT, Aerosol, Route to Pharmacy Electronically, [id number], [facility]/pharmacy #1026, 155, cm, 04/07/21 15:49:00 EDT, Height, 58... Start Date: 04/07/21 Status: Ordered Problem List Condition Effective Dates Status Health Status Inform ant Chest pain(Confirmed) Active Chronic migraine(Confirmed) Active Mild persistent asthma(Confirmed) Active Social History Social History Type Response Smoking Status Never smoker; Tobacc o user in household: No entered on: 12/12/15 Sex Female
--- OUTSIDE RECORDS SUMMARY | 2023-02-13 12:05 | XMS_ITS | Continuity of Care Document ---
Author Name Unknown Organization [facility] Address [address] [place] [address]- Care Team Providers Care Collections Analyst Name Role Phone Jenny WILSON, Venancio Smith Primary Care Physician [facility] Date(s): 06/21/21 - 07/21/21 [facility] [address] [place] [address]- Allergies, Adverse Reactions, Alerts Substance Reaction Severity [...] Recor ded 1Result Comment: [facility]: 10123-157-25 Medications albuterol CFC free 90 mcg/inh inhalation aerosol See Instructions, 2 puffs Inhalation PRN, 0 Refills, Maintenance Start Date: 06/15/11 Status: Ordered diclofenac sodium 75 mg oral delayed release tablet 1 tablet = 75 mg, By Mouth, 2 times a day, # 60 tablet, 0 Refills, Maintenance, 05/25/21 17:16:00 EDT, EC Tablet, [facility]/pharmacy #1026, Partial fill upon patient request [...] tablet, 0 Refills, Maintenance, 07/05/21 9:25:00 EDT, [facility]/pharmacy #1026, Partial fill upon patient request [...] 04/07/21 16:17:00 EDT, Route to Pharmacy Electronically, [facility]/pharmacy #1026 Tablet, Partial fill upon patient request if the p... Start Date: 04/07/21 Status: Ordered Singulair 10 mg oral tablet 10 mg, 1, tablet, By Mouth, Daily, # 30 tablet, Refills 4, Tot. Refills 4, Maintenance, 02/06/21 15:36:00 EDT, Route to Pharmacy Electronically, [facility]/pharmacy #[id number], Partial fill upon patient request if the prescription is for a schedule II opioid drug... Start Date: 02/06/21 Status: Ordered Symbicort 160mcg/4.5mcg Inhaler 2, puffs, Inhalation, 2 times a day, # 6 Gm, Refills 3, Tot. Refills 3, Maintenance, 04/07/21 16:17:00 EDT, Aerosol, Route to Pharmacy Electronically, [id number], [facility]/pharmacy #1026, 155, cm, 04/07/21 15:49:00 EDT, Height, 58... Start Date: 04/07/21 Status: Ordered Problem List Condition Effective Dates Status Health Status Inform ant Chest pain(Confirmed) Active Chronic migraine(Confirmed) Active Mild persistent asthma(Confirmed) Active Social History Social History Type Response Smoking Status Never smoker; Tobacc o user in household: No entered on: 12/12/15 Sex Female
--- OUTSIDE RECORDS SUMMARY | 2023-02-13 12:05 | XMS_ITS | Continuity of Care Document ---
Author Name Unknown Organization [facility] Address [address] [place] [address]- Care Team Providers Care Mannequin Mounter Name Role Phone Venancio Alvarado NP Primary Care Physician [facility] Date(s): 07/05/21 - 07/12/21 [facility] [address] [place] [address]- Attending Physician: Venancio Alvarado NP Allergies, Adverse [...] Virus Vaccine 01/11/04 Recor ded 1Result Comment: [facility]: 89886-648-09 Medications albuterol CFC free 90 mcg/inh inhalation aerosol See Instructions, 2 puffs Inhalation PRN, 0 Refills, Maintenance Start Date: 06/15/11 Status: Ordered diclofenac sodium 75 mg oral delayed release tablet 1 tablet = 75 mg, By Mouth, 2 times a day, # 60 tablet, 0 Refills, Maintenance, 05/25/21 17:16:00 EDT, EC Tablet, [facility]/pharmacy #1026, Partial fill upon patient request if [...] tablet, 0 Refills, Maintenance, 07/05/21 9:25:00 EDT, [facility]/pharmacy #1026, Partial fill upon patient request if [...] 04/07/21 16:17:00 EDT, Route to Pharmacy Electronically, [facility]/pharmacy #1026 Tablet, Partial fill upon patient request if the p... Start Date: 04/07/21 Status: Ordered Singulair 10 mg oral tablet 10 mg, 1, tablet, By Mouth, Daily, # 30 tablet, Refills 4, Tot. Refills 4, Maintenance, 02/06/21 15:36:00 EDT, Route to Pharmacy Electronically, [facility]/pharmacy #[id number], Partial fill upon patient request if the prescription is for a schedule II opioid drug... Start Date: 02/06/21 Status: Ordered Symbicort 160mcg/4.5mcg Inhaler 2, puffs, Inhalation, 2 times a day, # 6 Gm, Refills 3, Tot. Refills 3, Maintenance, 04/07/21 16:17:00 EDT, Aerosol, Route to Pharmacy Electronically, [id number], [facility]/pharmacy #1026, 155, cm, 04/07/21 15:49:00 EDT, Height, 58... Start Date: 04/07/21 Status: Ordered Problem List Condition Effective Dates Status Health Status Inform ant Chest pain(Confirmed) Active Chronic migraine(Confirmed) Active Mild persistent asthma(Confirmed) Active Vital Signs Most recent to oldest [Reference Range]: 1 Height 154 cm (07/05/21 9:00 AM) Social History Social History Type Response Smoking Status Never smoker; Tobacc o user in household: No entered on: 12/12/15 Sex Female
--- OUTSIDE RECORDS SUMMARY | 2023-02-13 12:05 | XMS_ITS | Continuity of Care Document ---
Author Name Unknown Organization [facility] Address [address] [place] [address]- Care Team Providers Care Custody Assistant Name Role Phone Charles Mccoy DO Primary Care Physician [facility]counter [facility] Date(s): 11/14/22 - 12/19/22 [facility] [address] [place] [address]- Attending Physician: Charles Mccoy DO Allergies, Adverse Reactions, Alerts Substance Reaction Severity [...] Vaccine 01/11/04 Recor ded 1Result Comment: [facility]: [id number] Medications albuterol CFC free 90 mcg/inh inhalation aerosol See Instructions, 2 puffs Inhalation PRN, 0 Refills, Maintenance Start Date: 06/15/11 Status: Ordered albuterol CFC free 90 mcg/inh inhalation aerosol 1, puffs, Inhalation, Every 6 hours, PRN, # 6.7 Gm, Refills 5, Tot. Refills 5, Maintenance, 08/28/21 13:56:00 EST, Aerosol, Route to Pharmacy Electronically, [id number], [facility]/pharmacy #1026, 154, cm, 07/05/21 9:00:00 EDT, Heig... Start Date: 08/28/21 Status: Ordered diclofenac sodium 75 mg oral delayed release tablet 1 tablet = 75 mg, By Mouth, 2 times a day, # 60 tablet, 0 Refills, Maintenance, 05/25/21 17:16:00 EDT, EC Tablet, [facility]/pharmacy #1026, Partial fill upon patient request if [...] Replace Required Details, Route to Pharmacy Electronically, [id number], 154, cm, 07/05/21 9:00:00 EDT, Height, 54, kg, 05/20/21 16:36:00 EDT, Dry Weight Start Date: 02/10/22 Status: Ordered Nature's Bounty Probiotic oral tablet 1 tablet, By Mouth, Daily, # 30 tablet, 0 Refills, Maintenance, 07/05/21 9:25:00 EDT, [facility]/pharmacy #1026, Partial fill upon patient request if [...] 04/07/21 16:17:00 EDT, Route to Pharmacy Electronically, [facility]/pharmacy #1026 Tablet, Partial fill upon patient request if the p... Start Date: 04/07/21 Status: Ordered Singulair 10 mg oral tablet 10 mg, 1, tablet, By Mouth, Daily, # 30 tablet, Refills 4, Tot. Refills 4, Maintenance, 02/06/21 15:36:00 EDT, Route to Pharmacy Electronically, [facility]/pharmacy #[id number], Partial fill upon patient request if the prescription is for a schedule II opioid drug... Start Date: 02/06/21 Status: Ordered Symbicort 160mcg/4.5mcg Inhaler 2, puffs, Inhalation, 2 times a day, # 6 Gm, Refills 3, Tot. Refills 3, Maintenance, 04/07/21 16:17:00 EDT, Aerosol, Route to Pharmacy Electronically, [id number], [facility]/pharmacy #1026, 155, cm, 04/07/21 [...] Team Personnel Name: Charles Mccoy DO Position: [facility] Primary Care Physician Member Role: PCP Address: Address: [address] [place] [address]- Care Team Related Persons Name: LISE BEAVERS Address: [address] [place] [id number] Name: SUMAN CRYSTAL Address: home [address] [place] [id number] Name: [address] Address: home [address] [place] [id number] Name: [address] Address: home [address] [place] [id number] Name: [address] Address: home [address] [place] [address] [address] [place] [id number] Name: GRACIELA CAZARES
--- NOTE | 2023-02-13 12:07 | ED.URI ---
HPI - URI/Sore Throat General Chief Complaint: Upper Respiratory Symptoms Stated Complaint: ? Sinus Infection Time Seen by Provider: 02/13/23 11:26 History of Present Illness HPI Narrative: patient complains of runny nose and nasal congestion that makes it hard to breathe through her nose when she is asleep for the last 4 days as well as a mild cough no shortness of breath no difficulty breathing or swallowing no sore throat no chest pain no sputum no difficulty breathing or swallowing no abdominal pain no nausea vomiting or diarrhea no skin rash no dysuria Related Data Previous Rx's Medication Instructions Recorded albuterol sulfate 2.5 mg/3 mL 2.5 mg (3 mL) inhalation Q6H PRN 10/24/20 (0.083 %) solution for nebulization shortness of breath or wheezing #75 mL albuterol sulfate 90 mcg/actuation 2 puff inhalation Q4-6H PRN 10/24/20 aerosol inhaler (Proventil HFA) shortness of breath or wheezing #8.5 grams prednisone 20 mg tablet 40 mg PO DAILY 5 days #10 tabs 10/24/20 oxymetazoline 0.05 % nasal spray 2 spray intranasal Q12H PRN nasal 02/13/23 congestion 3 days #15 mL Allergies Allergy/AdvReac Type Severity Reaction Status Date / Time No Known Allergies Allergy Verified 02/13/23 10:10 [facility] Past Medical History Source: nursing notes reviewed Medical History Anxiety Asthma Depression Heart abnormality PTSD (post-traumatic stress disorder) Social History Social History Advance Directives: No Advance Directives Information Provided: Yes Physical Exam Vital Signs: Vital Signs: Last Vital Signs Temp 99 F 02/13/23 10:11 Pulse 94 02/13/23 10:11 Resp 19 02/13/23 10:11 BP 114/74 02/13/23 10:11 Pulse Ox 100 02/13/23 10:11 O2 Del Method Room Air 02/13/23 10:11 BMI result Body Mass Index 18.2 general appearance no acute distress The eyes no redness or discharge The sinuses nontender but congested The pharynx is clear without redness swelling or exudate membranes moist Neck is supple Chest clear to auscultation bilateral Heart no murmur Abdomen soft nontender Extremities for range of motion x4 Skin no rash Course Course Course Narrative: patient is treated with decongestant, Tylenol or Motrin if needed, no sign of any bacterial or serious infection and well-appearing patient is discharged Medications Administered Discontinued Medications Generic Name Dose Route Start Last Admin Trade Name Freq PRN Reason Stop Dose Admin Oxymetazoline HCl 2 spray 02/13/23 11:54 02/13/23 12:16 Oxymetazoline Hcl 0.05 % Nasal 15 Ml [place] NOSTRIL-B 02/13/23 11:55 2 spray ONCE ONE Administration Medical Decision Making Lab Data Labs: Lab Results 02/13/23 02/13/23 02/13/23 Range/Units 10:34 10:34 10:48 COVID-19 (ZOË) Negative (Negative) COVID-19 Clin Com See Note Influenza Type A (JORGE) Cancelled Influenza Type A (PCR) NEGATIVE (Negative) Influenza Type B (JORGE) Cancelled Influenza Type B (PCR) NEGATIVE (Negative) Influenza A & B Note Cancelled RSV RNA Qual (PCR) NEGATIVE (Negative) SARS-CoV-2 RNA (RT-PCR) NEGATIVE (Negative) Discharge Plan Discharge Clinical Impression: Upper respiratory infection Patient Disposition: Home, Self-Care Additional Instructions: no sign of any dangerous or serious illness or bacterial infection You likely have of viral illness that will resolve on its own For symptom relief for up to 5 days you can use Afrin spray twice a day 2 sprays in each nostril which easily is very effective at relieving congestion Return any time any worse condition or any concerns For any aches or pains you can take Tylenol or Motrin as needed [id number] Prescriptions: New oxymetazoline 0.05 % spray,non-aerosol 2 spray intranasal Q12H PRN (Reason: nasal congestion) 3 Days Qty: 15 0RF No Action prednisone 20 mg tablet 40 mg PO DAILY 5 Days Qty: 10 0RF albuterol sulfate [Proventil HFA] 90 mcg/actuation HFA aerosol inhaler 2 puff inhalation Q4-6H PRN (Reason: shortness of breath or wheezing) Qty: 8.5 0RF albuterol sulfate 2.5 mg /3 mL (0.083 %) solution for nebulization 2.5 mg inhalation Q6H PRN (Reason: shortness of breath or wheezing) Qty: 75 0RF Interventions: ED Discharge Assessment Last Done: 02/13/23 12:22 Discharge Date/Time: 02/13/23 12:23
[2023-02-13] MEDS: Oxymetazoline HCl 0.05 % Nasal 15 ML SPRAY 2 SPRAY NOSTRIL-B (12:16)
== END 2023-02-13 12:23 | disposition home or self-care (01) ==
PROVIDERS: Emergency Provider Emergency Medicine Emergency Medical Services
DX: J06.9 Acute upper respiratory infection, unspecified (principal); Z20.822 Contact with and (suspected) exposure to COVID-19; Z20.828 Contact with and (suspected) exposure to other viral communicable diseases
CPT/HCPCS: 0241U; 87502; 87635; 99283

== ENCOUNTER 2024-12-14 14:13 | Outpatient (AMB) | payer OTHER, SELFPAY ==
--- NOTE | 2024-12-14 14:19 | MHC.PC.OV ---
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 She transferred from [facility] due to an insurance change. Patient says she is trying to conceive x 2 months. Patient had Nexplanon previously for control, but this was removed years ago. Reports menses lasted 8 days this month. Took multiple tests at home which were negative. She has concerns about bad cramping and nausea that happens the week before menstrual cycles. Menses is also 7-8 days now, previously they were shorter. Reports periods are also heavier and sometimes irregular. History of hyperthyroidism in the family. 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 Menses ended last week. Patient says she is on a vitamin since she is trying to conceive. She has a history of anxiety and depression. She was treated with Lexapro in the past. She was also on Hydroxyzine, but this did not help. Patient says depression is mild, but she has a lot of anxiety and some PTSD. She was homeless a year ago. She has a therapist, but she hasn't met with her recently. Endorses worrying about everything, sleep dysfunction, fatigue. Denies illicit drug use. Drinks alcohol but not heavily or frequently. Feels well supported by her partner. Denies hallucinations, impulsivity and mental health hospitalizations. She has asthma. She has no symptoms recently, but she needs a refill of albuterol which she uses as needed. She's been treated with Singulair in the past. Heart abnormality is in her past medical history. Patient says she was evaluated by cardiology and notes from [facility] read she had a negative EKG, holter and echocardiogram. Denies chest pain, shortness of breath, syncope, palpitations. ROS: Constitutional: No unexplained weight loss, fever, chills or night sweats. Respiratory: No shortness of breath, cough or sputum production. Cardiovascular: No chest pain, chest pressure or chest discomfort. No palpitations or pedal edema. Gastrointestinal: No anorexia, nausea, vomiting or diarrhea. No abdominal pain or blood in stool. Genitourinary: No dysuria, hematuria, urinary frequency. Neurologic: No headache, dizziness, syncope Endocrine: No cold or heat intolerance. No polyuria or polydipsia. Psychiatric: see HPI Physical exam: Constitutional: Alert, in no distress. Head: Normocephalic. Neck: Supple, Full range of motion. No lymphadenopathy. No palpable thyroid masses. Respiratory: Clear to auscultation. Cardiovascular: S1 S2 regular. No murmurs. Gastrointestinal: Abdomen soft, non-tender, non-distended. Normal bowel sounds. No palpable masses. Neurologic: No focal neurological deficits. Extremities: Warm and well perfused. No clubbing, cyanosis or edema. Symmetric peripheral pulses. Psychiatric: Normal mood and affect [facility] Medical History (Updated 12/15/24 @ 14:22 by SOLO Rodriguez) Menstrual problem Screening for cardiovascular condition Family planning advice Irregular menses Heart abnormality PTSD (post-traumatic stress disorder) Depression Anxiety Asthma Family History (Updated 12/14/24 @ 14:36 by Uma Kellogg CMA) Father Asthma HTN (hypertension) Diabetes Coronary heart disease Alcoholism Psychiatric disorder Paternal Grandfather Asthma Diabetes Alcoholism Maternal Grandmother Diabetes Paternal Grandmother Diabetes Mother Prediabetes Hyperthyroidism Psychiatric disorder Other FHx: mental illness Substance abuse Social History (Updated 12/14/24 @ 14:36 by Uma Kellogg CMA) Housing: House Alcohol intake: never Patient Tobacco Use Status: Former Tobacco user e-Cigarette/Vaping Use: Former Use Substance Use Type: Marijuana service: No Current occupational status: unemployed Cognitive needs: Yes (bad memory, hears things that aren't there) Hearing needs: No Vision needs: No Questionnaire PHQ-9 Over the last 2 weeks, how often have you been bothered by any of the following problems? 1. Little interest or pleasure in doing things: nearly every day 2. Feeling down, depressed, or hopeless: several days 3. Trouble falling or staying asleep, or sleeping too much: more than half the days 4. Feeling tired or having little energy: nearly every day 5. Poor appetite or overeating: more than half the days 6. Feeling bad about yourself - or that you are a failure or have let yourself or your family down: several days 7. Trouble concentrating on things, such as reading the newspaper or watching television: several days 8. Moving or speaking so slowly that other people could have noticed. Or the opposite - being so fidgety or restless that you have been moving around a lot more than usual: more than half the days 9. Thoughts that you would be better off or of hurting yourself in some way: not at all Total score: 15 Depression Screening Interpretation: Positive Depression Screening Follow-up: New Medication prescribed Depression Screening Done: Yes 98480 - PHQ-9 Billing: Yes Source: Developed by Drs. Javi Bautista, Blanca Conn, Edu Bautista and colleagues, with an educational danae from [employer]. Thrive Questionnaire Date Thrive assessed: 12/11/24 I am a: Patient What is your living situation today?: I have a steady place to live Within the past 12 months, did the food you bought not last and you didn't have the money to get more?: Sometimes True Within the past 12 months, did you worry whether your food would run out before you got money to buy more?: Never true Do you have trouble paying for medicines?: No Do you have trouble getting transportation to medical appointments?: No Do you have trouble paying your heating and electricity bill?: No Do you have trouble taking care of your child, family member or friend?: No Do you have trouble with day-to-day activities such as bathing, preparing meals, shopping, managing finances, etc.?: No Are you currently unemployed and looking for a job?: No Are you interested in more education?: No Please select the resources that you would like help with: None Currently or been in a relationship where the following occur: No concerns reported THRIVE Score: 1 AUDIT C Alcohol Use Questionnaire (AUDIT-C) 1. How often do you have a drink containing alcohol?: Never 2. How many drinks containing alcohol do you have on a typical day when you are drinking?: 1 or 2 3. How often do you have six or more drinks on one occasion?: Never Total Score: 0 RAUL-7 AMB Questionnaire RAUL-7 Date RAUL - 7 assessed: 12/14/24 Feeling nervous, anxious, or on edge: 3 = Nearly every day Not being able to stop or control worryin = More than half the days Worrying too much about different things: 1 = Several days Trouble relaxin = More than half the days Being so restless that it is hard to sit still: 1 = Several days Becoming easily annoyed or irritable: 1 = Several days Feeling afraid as if something awful might happen: 0 = Not at all Total RAUL-7 score (0-4 normal; 5-9 mild; 10-14 moderate; 15-21 severe): 10 Source: Developed by Drs. Javi Bautista, Blanca Conn, Edu Bautista and colleagues, with an educational danae from [employer]. ACT Questionnaire In the past 4 weeks, how much of the time did your asthma keep you from getting as much done at work, school or at home?: A little of the time During the past 4 weeks, how often have you had shortness of breath?: 3-6 times a week During the past 4 weeks, how often did your asthma symptoms wake you up at night or earlier than usual in the morning?: Once or twice per week During the past 4 weeks, how often have you had to use your rescue inhaler or nebulizer medication?: Not at all How would you rate your asthma control during the past 4 weeks?: Somewhat controlled ACT Interpretation: Positive Score: 19 Physical exam (Primary Care) Vital Signs: Last Vital Signs Pulse 95 12/14/24 14:22 Resp 12 12/14/24 14:22 BP 102/64 12/14/24 14:22 Pulse Ox 99 12/14/24 14:22 Oxygen Delivery Method Room Air 12/14/24 14:22 BMI result Body Mass Index 20.4 Tobacco/Smoking Status: Tobacco use Status Tobacco use date assessed 12/14/24 12/14/24 14:37 Patient Tobacco Use Status Former Tobacco user 12/14/24 14:37 e-Cigarette/Vaping Use Former Use 12/14/24 14:37 PHQ-9: PHQ-9 Score PHQ-9: Total score 15 12/14/24 17:04 Depression Screening Interpretation: Positive Depression Screening Follow-up: New Medication prescribed Thrive Assessment: Date of Thrive Assessment Date Thrive assessed 12/11/24 12/14/24 14:21 Currently or been in a relationship where the following occur: No concerns reported Coding Level of Care Code New Pt Level 4 (35189) Complex EM visit Add On G2211 Diagnoses Menstrual problem N92.6 Screening for cardiovascular condition Z13.6 Asthma J45.909 Depression F32.9 PTSD (post-traumatic stress disorder) F43.10 Anxiety F41.9 Additional Codes Asthma Control Questionnaire - ACT Interpretation: Positive ([id number]) PHQ-9 - 85226 - PHQ-9 Billing: Yes ([id number]) Assessment & Plan Assessment & Plan (1) Menstrual problem: Code(s): N92.6 - Irregular menstruation, unspecified Category: Medical (2) Screening for cardiovascular condition: Code(s): Z13.6 - Encounter for screening for cardiovascular disorders Category: Medical (3) Asthma: Code(s): J45.909 - Unspecified asthma, uncomplicated Category: Medical (4) Depression: Code(s): F32.9 - Major depressive disorder, single episode, unspecified Category: Medical (5) PTSD (post-traumatic stress disorder): Code(s): F43.10 - Post-traumatic stress disorder, unspecified Category: Medical (6) Anxiety: Code(s): F41.9 - Anxiety disorder, unspecified Category: Medical Plan Patient referred back to mail reader for menstrual concerns and family planning. Check cbc, iron, tsh. She will have labs done fasting for lipids and glucose. She would like to restart medication for depression and anxiety. Since she is TTC I prescribed Zoloft 50 mg (1/2 tab x 1 week). Side effects, black box warning and administration reviewed. Declined referral to psychiatrist/psychologist. Patient says she will call her therapist to follow up. Patient has number for crisis. Prescribed albuterol as needed for asthma symptoms. Monitor and reassess need for maintenance medication based on albuterol requirement and symptom burden. Patient says she saw cardiology in the past for ?chest pain versus abnormality on echo. Details unclear but prior PCP notes indicate negative work up. I will see if we can obtain cardiology records. Follow up in 4-6 weeks. Orders: Orders TSH reflex Free T4 12/14/24 N92.6 - Irregular menstruation, unspecified, Z13.6 - Encounter for screening for cardiovascular disorders, Z30.09 - Encounter for other general counseling and advice on contraception Comprehensive Met. Panel 12/14/24 N92.6 - Irregular menstruation, unspecified, Z13.6 - Encounter for screening for cardiovascular disorders, Z30.09 - Encounter for other general counseling and advice on contraception Complete Blood Count no Diff 12/14/24 N92.6 - Irregular menstruation, unspecified, Z13.6 - Encounter for screening for cardiovascular disorders, Z30.09 - Encounter for other general counseling and advice on contraception IRON PROFILE 12/14/24 N92.6 - Irregular menstruation, unspecified, Z13.6 - Encounter for screening for cardiovascular disorders, Z30.09 - Encounter for other general counseling and advice on contraception Lipid Panel 12/14/24 E78.5 - Hyperlipidemia, unspecified, N92.6 - Irregular menstruation, unspecified, Z13.6 - Encounter for screening for cardiovascular disorders, Z30.09 - Encounter for other general counseling and advice on contraception Referrals DIABETOLOGIST Referral N92.6 - Irregular menstruation, unspecified, Z30.09 - Encounter for other general counseling and advice on contraception Medications: New albuterol sulfate 90 mcg/actuation 2 inhalations inhalation .every 4 hours 30 days PRN 8.5 grams 0RF shortness of breath or wheezing sertraline (Zoloft) TAke 1/2 tab po qhs for 1 week then increase to 1 tab po qhs. 50 mg PO DAILY 30 tabs 1RF Discontinued albuterol sulfate Discontinued Reason: Patient no longer taking 2.5 mg (3 mL) inhalation Q6H PRN 75 mL 0RF shortness of breath or wheezing albuterol sulfate 90 mcg/actuation (Proventil HFA) Discontinued Reason: Patient no longer taking 2 puffs inhalation Q4-6H PRN 8.5 grams 0RF shortness of breath or wheezing prednisone Discontinued Reason: Patient no longer taking 40 mg (2 x 20 mg) PO DAILY 5 days 10 tabs 0RF oxymetazoline 0.05% Discontinued Reason: Patient no longer taking 2 sprays intranasal Q12H 3 days PRN 15 mL 0RF nasal congestion Patient Instructions:
[2024-12-14 14:22] VITALS: BP 102/64; PULSE 95; RESP 12; O2SAT 99; BMI 20.4
== END 2024-12-14 14:56 | disposition home or self-care (01) ==
LOC: HO.HMCFM 14:14
PROVIDERS: PCP Physician Assistant Medical; Visit Provider Physician Assistant Medical
DX: N92.6 Irregular menstruation, unspecified (principal); Z13.6 Encounter for screening for cardiovascular disorders; J45.909 Unspecified asthma, uncomplicated; F32.9 Major depressive disorder, single episode, unspecified; F43.10 Post-traumatic stress disorder, unspecified; F41.9 Anxiety disorder, unspecified

== ENCOUNTER → 2024-12-14 14:13 | Outpatient (BNVA) | payer OTHER, SELFPAY | PROVIDERS: PCP Physician Assistant Medical; Visit Provider Physician Assistant Medical | DX: N92.6 Irregular menstruation, unspecified (principal); J45.909 Unspecified asthma, uncomplicated; F32.9 Major depressive disorder, single episode, unspecified; F43.10 Post-traumatic stress disorder, unspecified; F41.9 Anxiety disorder, unspecified | CPT/HCPCS: 96127; 96160; 99202 ==

== ENCOUNTER 2024-12-14 15:12 | Outpatient (REF) | payer OTHER, SELFPAY ==
[2024-12-14 18:08] LABS: Hematocrit 39.4 % (37.0-47.0); Hemoglobin 13.5 g/dl (12.0-16.0); Mean Corpuscular HGB Conc 34.3 g/dl (31.0-35.0); Mean Corpuscular Hemoglobin 33.1 pg (27.0-33.0); Mean Corpuscular Volume 96.6 fL (80.0-98.0); Mean Platelet Volume 9.6 fL (9.4-12.3); Platelet Count 291 X10*3/uL (160-400); Red Blood Count 4.08 X10*6/uL (4.20-5.50); Red Cell Distribution Width 11.9 % (11.0-16.0); White Blood Count 6.8 X10*3/uL (4.8-10.8)
[2024-12-14 18:14] LABS: Alanine Aminotransferase 17 U/L (0-31); Albumin Level 4.4 g/dL (3.5-5.0); Alkaline Phosphatase 72 U/L (39-117); Anion Gap 13 (12-20); Aspartate Amino Transferase 21 U/L (5-31); Bilirubin Total 0.3 mg/dL (0.0-1.0); Blood Urea Nitrogen 17 mg/dL (9-16); Carbon Dioxide 30 mmol/L (22-29); Chloride 103 mmol/L (96-108); Cholesterol 130 mg/dL (<200); Estimated Glomerular Filt Rate > 60; Glucose Random 98 mg/dL (60-115); HDL Cholesterol 55 mg/dL (>40); Iron 61 mcg/dL (30-160); LDL Cholesterol Calculated 50 mg/dL (<100); Percent Iron Saturation 28 % (15-50); Potassium 3.8 mmol/L (3.3-5.1); Sodium 142 mmol/L (135-145); Total Iron Binding Capacity 219 mcg/dL (228-428); Total Protein 7.1 g/dL (6.5-8.0); Triglycerides 129 mg/dL (<150); Unsaturated Iron Binding 158 ug/dL
[2024-12-14 18:24] LABS: TSH reflex Free T4 1.64 uIU/mL (0.32-4.0)
== END 2024-12-14 15:13 | disposition home or self-care (01) ==
LOC: HO.WFDLDS 15:12
PROVIDERS: Visit Provider Physician Assistant Medical
DX: N92.6 Irregular menstruation, unspecified (principal); Z13.6 Encounter for screening for cardiovascular disorders; E78.5 Hyperlipidemia, unspecified
CPT/HCPCS: 36415; 80053; 80061; 83540; 84443; 85027

== ENCOUNTER 2025-02-22 13:40 | Outpatient (AMB) | payer OTHER, SELFPAY ==
--- NOTE | 2025-02-22 13:47 | A.OFFPC_ITS ---
Vital Signs 02/22/25 13:55 Height 5 ft 0.75 in Weight 105 lb 8 oz BMI 20.1 BP 104/60 Blood Pressure Location Rt brachial Position Sitting Pulse 79 Pulse Source Pulse Oximeter Temp 97.9 F Temp Source Temporal Artery Scan Pulse Oximetry (%) 98 Oxygen Delivery Method Room Air Intake Visit Reasons: labs, asthma Intake Note: Kwaku presents in the office today to follow up on her labs and asthma. Patient is currently 7 weeks . Was seen at the [place]. Patient had a transvaginal US and an US of her ovaries. Patient is having a hard time eating and experiencing nausea. Allergies No Known Allergies Allergy (Verified 02/22/25 13:51) Tobacco use date assessed: 02/22/25 Dental Screening Dental Screen Date: 02/22/25 Did you have a dental visit in the last 12 months?: No Did you have a dental problem in the last 6 months where you did not have access to dental care?: No Was dental information given to patient?: Patient has dentist HPI HPI Comments History of Present Illness Details This is a 20-year-old female with a past medical history of PTSD, anxiety, depression and asthma presenting for a med check. We discussed anxiety and depression at her last visit. She started sertraline 50 mg. She denies side effects, and it is helping. She has some anxiety symptoms still, but she denies depression. Her PHQ-9 is positive but this is due to answering nearly every day about sleep, energy and appetite, and she is currently 7 weeks . She is anxious about the because she had a friend who had multiple miscarriages, but she is doing well. She is open to speaking with a counselor. She has had some difficulty sleeping due to anxiety. She went to the emergency department on 02/16/2025 for suprapubic pain. She had a pelvic ultrasound which confirmed a single, live intrauterine . Her hCG level was 37,826 indicative of . She feels better since having the ultrasound done and less anxious. She has symptoms including morning sickness, but she is getting consistent hydration and nutrition. She is mostly craving bland foods like potatoes and pasta. She is taking a vitamin. She previously vaped and smoked marijuana, but she stopped both when she took 2 home tests and they were positive. She is not drinking alcohol. She is not having caffeine. She contacted [facility], and she is waiting to hear back from the nurse to schedule her first visit. ROS: Constitutional: No unexplained weight loss, fever, chills or night sweats. Respiratory: No shortness of breath, cough or sputum production. Cardiovascular: No chest pain, chest pressure or chest discomfort. No palpitations or pedal edema. Gastrointestinal: No anorexia, nausea, vomiting or diarrhea. No abdominal pain or blood in stool. Genitourinary: No dysuria, hematuria, urinary frequency. Neurologic: No headache, dizziness, syncope Psychiatric: see HPI Physical exam: Constitutional: Alert, in no distress. Head: Normocephalic. Neck: Supple, Full range of motion. No lymphadenopathy. No palpable thyroid masses. Respiratory: Clear to auscultation. Cardiovascular: S1 S2 regular. No murmurs. Gastrointestinal: Abdomen soft, non-tender, non-distended. Normal bowel sounds. No palpable masses. Neurologic: No focal neurological deficits. Extremities: Warm and well perfused. No clubbing, cyanosis or edema. Symmetric peripheral pulses. Psychiatric: Normal mood and affect COUNTS INCLUDE 234 BEDS AT THE [facility] Medical History (Updated 02/22/25 @ 17:37 by SOLO Rodriguez) Menstrual problem Screening for cardiovascular condition Family planning advice Irregular menses Heart abnormality PTSD (post-traumatic stress disorder) Depression Anxiety Asthma Family History Father Asthma HTN (hypertension) Diabetes Coronary heart disease Alcoholism Psychiatric disorder Paternal Grandfather Asthma Diabetes Alcoholism Maternal Grandmother Diabetes Paternal Grandmother Diabetes Mother Prediabetes Hyperthyroidism Psychiatric disorder Other FHx: mental illness Substance abuse Social History (Updated 02/22/25 @ 13:52 by Mitzy Merritt MA) Housing: House Alcohol intake: never Patient Tobacco Use Status: Former Tobacco user e-Cigarette/Vaping Use: Former Use Second Hand Smoke Exposure: No Substance Use Type: Marijuana service: No Current occupational status: unemployed Cognitive needs: Yes (bad memory, hears things that aren't there) Hearing needs: No Vision needs: No Questionnaire PHQ-9 Over the last 2 weeks, how often have you been bothered by any of the following problems? 1. Little interest or pleasure in doing things: several days 2. Feeling down, depressed, or hopeless: several days 3. Trouble falling or staying asleep, or sleeping too much: nearly every day 4. Feeling tired or having little energy: nearly every day 5. Poor appetite or overeating: nearly every day 6. Feeling bad about yourself - or that you are a failure or have let yourself or your family down: several days 7. Trouble concentrating on things, such as reading the newspaper or watching television: not at all 8. Moving or speaking so slowly that other people could have noticed. Or the opposite - being so fidgety or restless that you have been moving around a lot more than usual: several days 9. Thoughts that you would be better off or of hurting yourself in some way: not at all Total score: 13 Depression Screening Interpretation: Positive Depression Screening Done: Yes 57983 - PHQ-9 Billing: Yes Source: Developed by Drs. Javi Bautista, Blanca Conn, Edu Bautista and colleagues, with an educational danae from [employer]. Thrive Questionnaire Date Thrive assessed: 02/22/25 I am a: Patient What is your living situation today?: I have a steady place to live Within the past 12 months, did the food you bought not last and you didn't have the money to get more?: Sometimes True Within the past 12 months, did you worry whether your food would run out before you got money to buy more?: Never true Do you have trouble paying for medicines?: No Do you have trouble getting transportation to medical appointments?: No Do you have trouble paying your heating and electricity bill?: No Do you have trouble taking care of your child, family member or friend?: No Do you have trouble with day-to-day activities such as bathing, preparing meals, shopping, managing finances, etc.?: No Are you currently unemployed and looking for a job?: No Are you interested in more education?: No Please select the resources that you would like help with: None THRIVE Score: 1 AUDIT C Alcohol Use Questionnaire (AUDIT-C) 1. How often do you have a drink containing alcohol?: Never Total Score: 0 Score Reviewed/Action Taken: No RAUL-7 AMB Questionnaire RAUL-7 Date RAUL - 7 assessed: 02/22/25 Feeling nervous, anxious, or on edge: 1 = Several days Not being able to stop or control worryin = Several days Worrying too much about different things: 1 = Several days Trouble relaxin = Several days Being so restless that it is hard to sit still: 2 = More than half the days Becoming easily annoyed or irritable: 2 = More than half the days Feeling afraid as if something awful might happen: 2 = More than half the days Total RAUL-7 score (0-4 normal; 5-9 mild; 10-14 moderate; 15-21 severe): 10 Source: Developed by Drs. Javi Bautista, Blanca Conn, Edu Bautista and colleagues, with an educational danae from [employer]. RAUL-7 Assessment Billing RAUL-7 Assessment Tool: RAUL-7 Assessment 89835 ACT Questionnaire In the past 4 weeks, how much of the time did your asthma keep you from getting as much done at work, school or at home?: A little of the time During the past 4 weeks, how often have you had shortness of breath?: 3-6 times a week During the past 4 weeks, how often did your asthma symptoms wake you up at night or earlier than usual in the morning?: Not at all During the past 4 weeks, how often have you had to use your rescue inhaler or nebulizer medication?: 1-2 times a week How would you rate your asthma control during the past 4 weeks?: Well controlled ACT Interpretation: Negative Score: 18 Physical exam (Primary Care) Vital Signs: Last Vital Signs Temp 97.9 F 02/22/25 13:55 Pulse 79 02/22/25 13:55 BP 104/60 02/22/25 13:55 Pulse Ox 98 02/22/25 13:55 Oxygen Delivery Method Room Air 02/22/25 13:55 BMI result Body Mass Index 20.1 Tobacco/Smoking Status: Tobacco use Status Tobacco use date assessed 02/22/25 02/22/25 13:59 Patient Tobacco Use Status Former Tobacco user 02/22/25 13:52 e-Cigarette/Vaping Use Former Use 02/22/25 13:52 PHQ-9: PHQ-9 Score PHQ-9: Total score 13 02/22/25 13:59 Depression Screening Interpretation: Positive Thrive Assessment: Date of Thrive Assessment Date Thrive assessed 02/22/25 02/22/25 13:59 Coding Level of Care Code Est Pt Level 3 (54499) Complex EM visit Add On G2211 Diagnoses Depression F32.9 PTSD (post-traumatic stress disorder) F43.10 Anxiety F41.9 Less than 8 weeks gestation of Z3A.01 Weeks of gestation: less than 8 weeks Additional Codes Asthma Control Questionnaire - ACT Interpretation: Negative ([id number]) RAUL-7 Assessment Billing - RAUL-7 Assessment Tool: RAUL-7 Assessment 63590 ([id number]) PHQ-9 - 65486 - PHQ-9 Billing: Yes ([id number]) Assessment & Plan Assessment & Plan (1) Depression: Code(s): F32.9 - Major depressive disorder, single episode, unspecified Category: Medical (2) PTSD (post-traumatic stress disorder): Code(s): F43.10 - Post-traumatic stress disorder, unspecified Category: Medical (3) Anxiety: Code(s): F41.9 - Anxiety disorder, unspecified Category: Medical (4) : Code(s): Z34.90 - Encounter for supervision of normal , unspecified, unspecified trimester Category: Medical Qualifiers: Weeks of gestation: less than 8 weeks Qualified Code(s): Z3A.01 - Less than 8 weeks gestation of Plan The patient will follow up with OBGYN to schedule her initial consult for . This is her 1st . Continue vitamin daily. She will continue sertraline 50 mg daily. She would like to speak with a therapist. Referred. Follow up in 3 months for anxiety and depression. Orders: Referrals Psychology Referral F41.9 - Anxiety disorder, unspecified, F43.10 - Post- traumatic stress disorder, unspecified Medications: Refilled sertraline (Zoloft) 50 mg PO DAILY 90 tabs 1RF
[2025-02-22 13:55] VITALS: BP 104/60; PULSE 79; TEMP 36.6; O2SAT 98; BMI 20.1
== END 2025-02-22 14:18 | disposition home or self-care (01) ==
LOC: HO.HMCFM 13:41
PROVIDERS: PCP Physician Assistant Medical; Visit Provider Physician Assistant Medical
DX: F32.9 Major depressive disorder, single episode, unspecified (principal); F43.10 Post-traumatic stress disorder, unspecified; F41.9 Anxiety disorder, unspecified; Z3A.01 Less than 8 weeks gestation of pregnancy

== ENCOUNTER → 2025-02-22 13:40 | Outpatient (BNVA) | payer OTHER, SELFPAY | PROVIDERS: PCP Physician Assistant Medical; Visit Provider Physician Assistant Medical | DX: O99.341 Other mental disorders complicating pregnancy, first trimester (principal); F32.9 Major depressive disorder, single episode, unspecified; F43.10 Post-traumatic stress disorder, unspecified; F41.9 Anxiety disorder, unspecified; O99.511 Diseases of the respiratory system complicating pregnancy, first trimester; J45.909 Unspecified asthma, uncomplicated; Z3A.01 Less than 8 weeks gestation of pregnancy; Z79.899 Other long term (current) drug therapy | CPT/HCPCS: 96127; 96160; 99212 ==

== ENCOUNTER 2025-05-31 09:10 | Outpatient (REF) | payer OTHER, SELFPAY ==
[2025-05-31 15:15] LABS: MANUAL DIFF FLAG NO
[2025-05-31 15:27] LABS: Hematocrit 34.7 % (37.0-47.0); Hemoglobin 11.7 g/dl (12.0-16.0); Imm Gran Abs Auto 0.03 X10*3/uL (0.00-0.03); Imm Gran Pct Auto 0.3 % (0.0-0.4); Lymphocytes Absolute Auto 1.3 X10*3/uL (1.2-4.9); Mean Corpuscular HGB Conc 33.7 g/dl (31.0-35.0); Mean Corpuscular Hemoglobin 32.2 pg (27.0-33.0); Mean Corpuscular Volume 95.6 fL (80.0-98.0); NRBC Abs Auto 0.000 X10*3/uL (0.0-0.012); NRBC Pct Auto 0.0 /100WBC (0.0-0.2); Platelet Count 263 X10*3/uL (160-400); Red Blood Count 3.63 X10*6/uL (4.20-5.50); White Blood Count 8.8 X10*3/uL (4.8-10.8)
[2025-05-31 15:44] LABS: Troponin-I High Sensitivity < 2.7 ng/L (<3.5-17.0)
[2025-05-31 15:46] LABS: D Dimer High Sensitivity 274 NG/ML
[2025-05-31 15:54] LABS: Alanine Aminotransferase 13 U/L (0-31); Albumin Level 3.8 g/dL (3.5-5.0); Alkaline Phosphatase 62 U/L (39-117); Anion Gap 9 (12-20); Aspartate Amino Transferase 21 U/L (5-31); Blood Urea Nitrogen 8 mg/dL (9-16); Calcium 9.1 mg/dL (8.4-10.2); Carbon Dioxide 27 mmol/L (22-29); Chloride 108 mmol/L (96-108); Estimated Glomerular Filt Rate > 60; Potassium 3.9 mmol/L (3.3-5.1); Sodium 140 mmol/L (135-145); Total Protein 6.4 g/dL (6.5-8.0)
== END 2025-05-31 09:11 | disposition home or self-care (01) ==
LOC: HO.WFDLDS 09:10
PROVIDERS: PCP Physician Assistant Medical; Visit Provider Physician Assistant Medical
DX: R07.9 Chest pain, unspecified (principal); F41.9 Anxiety disorder, unspecified; J45.20 Mild intermittent asthma, uncomplicated; F32.A Depression, unspecified; Z3A.21 21 weeks gestation of pregnancy
CPT/HCPCS: 36415; 80053; 84443; 84484; 85025; 85379; 93005; 99212

== ENCOUNTER 2025-05-31 09:10 | Outpatient (AMB) | payer OTHER, SELFPAY ==
--- NOTE | 2025-05-31 09:01 | A.OFFPC_ITS ---
Vital Signs 05/31/25 09:18 Height 5 ft 1.42 in Weight 119 lb 4 oz BMI 22.2 BP 98/60 Blood Pressure Location Rt brachial Position Sitting Respiration 12 Pulse 84 Pulse Source Pulse Oximeter Temp 97.8 F Temp Source Temporal Artery Scan Pulse Oximetry (%) 98 Oxygen Delivery Method Room Air Intake Visit Reasons: med check Intake Note: Thea presents in the office today for a medication check in. Allergies No Known Allergies Allergy (Verified 05/31/25 09:16) Tobacco use date assessed: 05/31/25 Dental Screening Dental Screen Date: 05/31/25 Did you have a dental visit in the last 12 months?: No Did you have a dental problem in the last 6 months where you did not have access to dental care?: No Was dental information given to patient?: Patient declined HPI HPI Comments History of Present Illness Details This is a 20-year-old female with a past medical history of PTSD, anxiety, depression and asthma presenting for a med check. Anxiety with depression-she is currently taking sertraline 50 mg daily. It is helping. She would like to increase the dose because she still has days sometimes where she feels down and depressed or has some breakthrough anxiety. She was initially anxious about her , but she feels better now that she is 21 weeks along. She had the anatomy scan done. She is having a boy, and she is very happy about this. She is living with her . Her appetite returned to normal after the 1st trimester. Patient previously vaped in smoked marijuana, but she stopped both of these things when she found out she was . She does not drink alcohol or caffeine. She is followed by [facility]. Patient mentions today that she has been having episodes of chest pain 2-3 times per week associated with exertional activities like exercising and going up the stairs. It is associated with shortness of breath. It has at least been going on for as long as she has been . She thinks it may have happened a little bit before , but she isn't sure. She describes it as feeling a burning in the left side of the chest that is different than heartburn. She is taking Tums intermittently for acid reflux. The pain and shortness of breath resolve after she lays down for a few minutes or stops and take some deep breaths. She denies dizziness and syncope or leg swelling. She has a history of asthma, but she has not tried using her inhaler because she has no cough or wheezing with this. She notes a family history of heart disease in her father and paternal grandfather. Her father had an CT and stent at age 5555 years old. She denies a history of blood clots. She denies pain in her calves. No recent musculoskeletal injury. She has a history of asthma, but she has not used her inhaler for these sym ptoms. She reports not using her inhaler much at all recently. 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 Last episode of chest pain was a week ago. She had notes from [facility] that stated she had a negative EKG, Holter and echocardiogram. ROS: Constitutional: No unexplained weight loss, fever, chills, fatigue or night sweats. Eyes: No vision changes, blurry vision, double vision Respiratory: +POSEY. Denies cough, wheezing or sputum production. Denies hemoptysis. Cardiovascular: No palpitations or pedal edema. See HPI Gastrointestinal: No anorexia, nausea, vomiting or diarrhea. No abdominal pain or blood in stool. Genitourinary: Denies dysuria and hematuria, denies flank pain Neurologic: No headache, dizziness, syncope, unilateral weakness, ataxia, numbness or tingling in the extremities. Hematologic/Lymphatics: No bleeding or bruising. No painful lymph nodes. Skin: No rash Endocrine: No cold or heat intolerance. No polyuria or polydipsia. Psychiatric: No SI/HI. Physical exam: Constitutional: Alert, in no distress. Eyes: Pupils are equal, round and reactive to light. Extraocular muscles intact. Ear, Nose and Throat: Canals clear. TMs normal. Normal nasal mucosa. No nasal discharge. No oral lesions. Neck: Supple, Full range of motion. No lymphadenopathy. No palpable thyroid masses. Respiratory: Clear to auscultation. Cardiovascular: S1 S2 regular. No murmurs Gastrointestinal: Abdomen soft, non-tender, non-distended. Normal bowel sounds. No palpable masses. Neurologic: No focal neurological deficits.. Extremities: Warm and well perfused. No clubbing, cyanosis or edema. Intact peripheral pulses upper and lower extremities. Psychiatric: Normal mood and affect [facility] Medical History (Updated 05/31/25 @ 13:24 by SOLO Rodriguez) Chest pain Menstrual problem Screening for cardiovascular condition Family planning advice Irregular menses Heart abnormality PTSD (post-traumatic stress disorder) Depression Anxiety Asthma Family History Father Asthma HTN (hypertension) Diabetes Coronary heart disease Alcoholism Psychiatric disorder Paternal Grandfather Asthma Diabetes Alcoholism Maternal Grandmother Diabetes Paternal Grandmother Diabetes Mother Prediabetes Hyperthyroidism Psychiatric disorder Other FHx: mental illness Substance abuse Social History (Updated 05/31/25 @ 09:17 by Mitzy Merritt MA) Housing: House Alcohol intake: never Patient Tobacco Use Status: Former Tobacco user e-Cigarette/Vaping Use: Former Use Second Hand Smoke Exposure: No Substance Use Type: Marijuana service: No Current occupational status: unemployed Cognitive needs: Yes (bad memory, hears things that aren't there) Hearing needs: No Vision needs: No Questionnaire Thrive Questionnaire Date Thrive assessed: 12/11/24 I am a: Patient What is your living situation today?: I have a steady place to live Within the past 12 months, did the food you bought not last and you didn't have the money to get more?: Sometimes True Within the past 12 months, did you worry whether your food would run out before you got money to buy more?: Never true Do you have trouble paying for medicines?: No Do you have trouble getting transportation to medical appointments?: No Do you have trouble paying your heating and electricity bill?: No Do you have trouble taking care of your child, family member or friend?: No Do you have trouble with day-to-day activities such as bathing, preparing meals, shopping, managing finances, etc.?: No Are you currently unemployed and looking for a job?: No Are you interested in more education?: No Please select the resources that you would like help with: None THRIVE Score: 1 RAUL-7 AMB Questionnaire RAUL-7 Date RAUL - 7 assessed: 02/22/25 Source: Developed by Drs. Javi Bautista, Blanca Conn, Edu Bautista and colleagues, with an educational danae from [employer]. Physical exam (Primary Care) Vital Signs: Last Vital Signs Temp 97.8 F 05/31/25 09:18 Pulse 84 05/31/25 09:18 Resp 12 05/31/25 09:18 BP 98/60 05/31/25 09:18 Pulse Ox 98 05/31/25 09:18 Oxygen Delivery Method Room Air 05/31/25 09:18 BMI result Body Mass Index 22.2 Tobacco/Smoking Status: Tobacco use Status Tobacco use date assessed 05/31/25 05/31/25 09:21 Patient Tobacco Use Status Former Tobacco user 05/31/25 09:17 e-Cigarette/Vaping Use Former Use 05/31/25 09:17 Thrive Assessment: Date of Thrive Assessment Date Thrive assessed 12/11/24 05/31/25 09:01 Office Procedures EKG Details: EKG shows normal sinus rhythm, 78 beats per minute, no evidence of arrhythmia or ischemic changes 30118-[id number], Complete Coding Level of Care Code Est Pt Level 4 (02408) Complex EM visit Add On G2211 Diagnoses Chest pain, unspecified type R07.9 Chest pain type: unspecified Less than 8 weeks gestation of Z3A.01 Weeks of gestation: less than 8 weeks Mild intermittent asthma without complication J45.20 Asthma severity: mild Asthma persistence: intermittent Asthma complication type: uncomplicated Anxiety F41.9 Depression, unspecified depression type F32.A Depression Type: unspecified CPT Codes EKG - CPT: 14144-[id number], Complete ([id number]) Assessment & Plan Assessment & Plan (1) Chest pain: Code(s): R07.9 - Chest pain, unspecified Category: Medical Qualifiers: Chest pain type: unspecified Qualified Code(s): R07.9 - Chest pain, unspecified (2) : Code(s): Z34.90 - Encounter for supervision of normal , unspecified, unspecified trimester Category: Medical Qualifiers: Weeks of gestation: less than 8 weeks Qualified Code(s): Z3A.01 - Less than 8 weeks gestation of (3) Asthma: Code(s): J45.909 - Unspecified asthma, uncomplicated Category: Medical Qualifiers: Asthma severity: mild Asthma persistence: intermittent Asthma complication type: uncomplicated Qualified Code(s): J45.20 - Mild intermittent asthma, uncomplicated (4) Anxiety: Code(s): F41.9 - Anxiety disorder, unspecified Category: Medical (5) Depression: Code(s): F32.9 - Major depressive disorder, single episode, unspecified Category: Medical Qualifiers: Depression Type: unspecified Qualified Code(s): F32.A - Depression, unspecified Plan In summary this is a 20-year-old female who is 21 weeks with a history of anxiety and depression who presented for med review with the additional concerns of intermittent chest pain. She has no symptoms during the past week. EKG today is normal. Vitals are also normal. I advised the patient to call 911 if chest pain returns. She is afebrile, no cough or wheezing, lungs are clear to auscultation. I do not suspect acute CHF or pneumonia at this time. No evidence of respiratory infection on exam. Differential includes cardiovascular disease and PE. Patient is not hypoxic and is denying any symptoms since a week ago which makes PE less likely. I will check D-dimer. If this is positive she will be instructed to go to the ED. I will also check a troponin and BNP level. I have ordered an urgent echocardiogram. She may also need stress testing, but I will refer urgently to Cardiology for their recommendation. Check labs for anemia, thyroid disease, electrolyte disturbance. Discussed alternative etiologies including reflux, asthma, anxiety, musculoskeletal pain. Patient has albuterol to use as needed. Reviewed considerations for . For anxiety and depression she would like to increase sertraline. Trial increase to 75 mg daily. Side effects reviewed. Reviewed black box warning. She will schedule a follow up with me in about a month. Orders: Orders D Dimer High Sensitivity Today R07.9 - Chest pain, unspecified Complete Blood Count Auto Diff Today R07.9 - Chest pain, unspecified Comprehensive Met. Panel Today R07.9 - Chest pain, unspecified AMB EKG-In Office Today R07.9 - Chest pain, unspecified Troponin-I High Sensitivity Today R07.9 - Chest pain, unspecified B Type Natriuretic Peptide Today R07.9 - Chest pain, unspecified TSH reflex Free T4 Today F41.9 - Anxiety disorder, unspecified CA echo transthoracic complete Today R07.9 - Chest pain, unspecified, Z3A.01 - Less than 8 weeks gestation of Medications: Changed From sertraline (Zoloft) 50 mg PO DAILY 90 tabs 1RF To sertraline (Zoloft) 75 mg (1.5 x 50 mg) PO DAILY 135 tabs 1RF 90 days
[2025-05-31 09:18] VITALS: BP 98/60; PULSE 84; RESP 12; TEMP 36.6; O2SAT 98; BMI 22.2
== END 2025-05-31 10:17 | disposition home or self-care (01) ==
LOC: HO.HMCFM 09:11
PROVIDERS: PCP Physician Assistant Medical; Visit Provider Physician Assistant Medical
DX: R07.9 Chest pain, unspecified (principal); Z3A.01 Less than 8 weeks gestation of pregnancy; J45.20 Mild intermittent asthma, uncomplicated; F41.9 Anxiety disorder, unspecified; F32.A Depression, unspecified

== ENCOUNTER → 2025-06-03 13:01 | Outpatient (REF) | payer OTHER, SELFPAY ==
--- NOTE | 2025-06-03 13:05 | CA_ITS ---
Transthoracic Echocardiogram Patient (Last, First, Middle): Kwaku Clement, Gender: F Date of : 2005 Age: 20 Procedure Date: 06/03/2025 Procedure Type: Transthoracic Echocardiogram Location: OP Height: 152.4 cm Weight: 53.52 kg BSA: 1.49 m2 Heart Rate: bpm BP: 90 / 60 mmHg Manager Front Office: TO/RC Referring MD: Marina BANDA Hairspring Vibrator: Marshall Brennan MD Symptoms: R07.9 - Chest pain, unspecified Study Quality: Adequate ECG Rhythm: Sinus Conclusions: - Normal study Findings Left Ventricle Normal left ventricular size, thickness, and systolic function. The visually estimated ejection fraction is between 60-65%. Spectral Doppler is indicative of a normal filling pattern. Right Ventricle Normal right ventricular cavity size and systolic function. Atria Both atria are normal in size. There is no evidence of interatrial shunt. Aortic Valve Normal aortic valve structure and function. There is no aortic valve stenosis. There is no aortic valve regurgitation. Mitral Valve Normal mitral valve structure and function. There is no mitral valve regurgitation. There is no mitral valve stenosis. Pulmonic Valve The pulmonic valve is likely normal. Tricuspid Valve Normal tricuspid valve structure. There is trace tricuspid valve regurgitation. The right ventricular systolic pressure is normal. The right ventricular systolic pressure is 23 mmHg. Normal right atrial pressure. There is no evidence of pulmonary hypertension. Great Vessels All visible segments of the aorta are normal in size. The pulmonary artery was not well visualized. Venous The inferior vena cava is normal in size and collapses greater than 50% with inspiration. Pericardium/Pleural There is no evidence of pericardial effusion. Prior Study Comparison No prior study available for comparison. Measurements 2D Linear Measurements IVSd: 0.84 0.6-0.9/0.6-1.0 cm LVIDd: 3.90 3.9-5.3/4.2-5.9 cm LVIDd Index: 2.62 2.4-3.2/2.2-3.1 cm/m2 LVIDs: 2.79 2.0-3.6 cm LVPWd: 0.89 0.7-1.1 cm LA Diam: 2.80 2.7-3.8/3.0-4.0 cm LAIDs Index: 1.88 1.5-2.3 cm/m2 LV Mass: 123.60 67-162/88-224 g LV Mass Index: 82.96 43-95/49-115 g/m2 LVOT Diam: 2.20 3.0+(-)1.3 cm 2D Systolic Function EF 4C: 62.90 >55% EF 2C: 60.10 >55% EF BiP: 60.80 >55% Mitral Valve MV Pk E: 0.87 MV PK A: 0.81 MV Decel Time: 181.00 E/A: 1.10 E'Lateral: 15.40 E'Medial: 9.68 E/E' Med: 9.00 E/E' Lat: 5.70 PHT: 53.00 MVA PHT: 4.15 Decel Comal: 4.82 Aortic Valve AoV Pk Wally: 1.27 AoV Mn Wally: 0.84 AoV VTI: 0.23 AoV Pk Grad: 6.00 Aov Mn Grad: 3.00 MARYSE Cont.VTI: 3.37 LVOT LVOT Pk Wally: 1.12 LVOT Mn Wally: 0.69 LVOT VTI: 0.21 LVOT Pk Grad: 5.00 LVOT Mn Grad: 2.00 LVOT Diam: 2.20 LVOT Area: 3.80 Diastolic Function MV Pk E: 0.87 MV Pk A: 0.81 E/A: 1.10 E'Medial: 9.68 E/E' Med: 9.00 E' Laterial: 15.40 E/E' Lat: 5.70 Right Ventricle TAPSE (mm): 26.10 TVS' Wally: 12.50 Tricuspid Valve TR Pk Wally: 2.21 TR Pk Grad: 20.00 RA Press: 3.00 RVSP: 23.00 Great Vessels Aorta Sinus of Valsalva: 2.70 2.0-3.5 cm Ao Asc: 2.30 2.1-3.4 cm Pulmonary Veins Pulm Vein S/D 1.30 Pulmonary Valve PV Pk Wally: 1.02 Peak PV Grad: 4.00 Updated in Other Vendor System with Status of Final Marshall Brennan MD electronically signed on 06/03/2025 4:16:07 PM with status of Final
== END ==
LOC: HO.CARD 13:01
PROVIDERS: PCP Physician Assistant Medical; Visit Provider Physician Assistant Medical
DX: O26.891 Other specified pregnancy related conditions, first trimester (principal); R07.9 Chest pain, unspecified; Z3A.01 Less than 8 weeks gestation of pregnancy
CPT/HCPCS: 93306

== ENCOUNTER → 2025-06-03 13:05 | Outpatient (BNV) | payer OTHER, SELFPAY | PROVIDERS: PCP Physician Assistant Medical; Visit Provider Internal Medicine Cardiovascular Disease | DX: R07.9 Chest pain, unspecified (principal); Z33.1 Pregnant state, incidental | CPT/HCPCS: 93306 ==

== ENCOUNTER 2025-07-08 13:45 | Outpatient (AMB) | payer OTHER, SELFPAY ==
--- NOTE | 2025-07-08 14:02 | MHC.PC.OV ---
Vital Signs 07/08/25 14:05 Height 5 ft 1.42 in Weight 126 lb 6 oz BMI 23.6 BP 100/60 Blood Pressure Location Lt brachial Position Sitting Respiration 12 Pulse 92 Pulse Source Pulse Oximeter Temp 98.2 F Temp Source Temporal Artery Scan Pulse Oximetry (%) 99 Oxygen Delivery Method Room Air Intake Visit Reasons: endometrial Intake Note: Thea presents in the office today for a follow up to chest pain. Patient does not have an appointment until September. Patient has been experiencing nose bleeds. Allergies No Known Allergies Allergy (Verified 07/08/25 14:04) Medication List - Last Reconciled 07/09/25 by SOLO Rodriguez albuterol sulfate 90 mcg/actuation 2 inhalations inhalation .every 4 hours PRN 30 days aspirin 162 mg PO DAILY famotidine (Pepcid AC) 10 mg PO BID PRN mv-min [id number] 180 mcg-25 mg- 25 mg (Alive Daily Support ) tabs PO sertraline (Zoloft) 75 mg (1.5 x 50 mg) PO DAILY 90 days Tobacco use date assessed: 07/08/25 Dental Screening Dental Screen Date: 07/08/25 Did you have a dental visit in the last 12 months?: Yes Did you have a dental problem in the last 6 months where you did not have access to dental care?: No Was dental information given to patient?: Patient has dentist HPI HPI Comments History of Present Illness Details This is a 20-year-old female with a past medical history of PTSD, anxiety, depression and asthma presenting for a med check. Anxiety with depression-she is currently taking sertraline 75 mg daily. The dose increase is controlling her symptoms. She is 26 weeks now. Is having a boy. She is living with her . Patient previously vaped in smoked marijuana, but she stopped both of these things when she found out she was . She does not drink alcohol or caffeine. She is followed by [facility]. At her last visit with me she reported having episodes of chest pain 2-3 times per week exhausted associated with exertional activities like exercising and going up the stairs. It is associated with shortness of breath. It has at least been going on for as long as she has been . She thinks it may have happened a little bit before , but she isn't sure. She describes it as feeling a burning in the left side of the chest that is different than heartburn. She reported taking Tums intermittently for acid reflux, and she is wondering if there is something else she can use because she is still having acid reflux symptoms. The pain and shortness of breath resolve after she lays down for a few minutes or stops and take some deep breaths. She denies dizziness and syncope or leg swelling. She has a history of asthma, but she has not tried using her inhaler because she has no cough or wheezing with this. She notes a family history of heart disease in her father and paternal grandfather. Her father had an IL and stent at age 5555 years old. She denies a history of blood clots. She denies pain in her calves. No recent musculoskeletal injury. 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 She had notes from [facility] that stated she had a negative EKG, Holter and echocardiogram. EKG 06/02/2025 and echocardiogram 06/03/2025 were normal. Lab work demonstrated mild anemia, D-dimer within range for , normal TSH. She was referred to Cardiology. She had the appointment scheduled at [facility] [place] in May, but there car broke down, and now she has not rescheduled until September. ROS: Constitutional: No unexplained weight loss, fever, chills, fatigue or night sweats. Eyes: No vision changes, blurry vision, double vision Respiratory: +POSEY. Denies cough, wheezing or sputum production. Denies hemoptysis. Cardiovascular: No palpitations or pedal edema. See HPI Gastrointestinal: No anorexia, nausea, vomiting or diarrhea. No abdominal pain or blood in stool. Genitourinary: Denies dysuria and hematuria, denies flank pain Neurologic: No headache, dizziness, syncope, unilateral weakness, ataxia, numbness or tingling in the extremities. Hematologic/Lymphatics: No bleeding or bruising. No painful lymph nodes. Skin: No rash Endocrine: No cold or heat intolerance. No polyuria or polydipsia. Psychiatric: No SI/HI. Physical exam: Constitutional: Alert, in no distress. Eyes: Pupils are equal, round and reactive to light. Extraocular muscles intact. Neck: Supple, Full range of motion. No lymphadenopathy. No palpable thyroid masses. Respiratory: Clear to auscultation. Cardiovascular: S1 S2 regular. No murmurs Gastrointestinal: Abdomen soft, non-tender,Normal bowel sounds. No palpable masses. No rebound or guarding. Neurologic: No focal neurological deficits.. Extremities: Warm and well perfused. No clubbing, cyanosis or edema. Intact peripheral pulses upper and lower extremities. Psychiatric: Normal mood and affect [facility] Medical History (Updated 07/09/25 @ 09:00 by SOLO Rodriguez) Acid reflux Exertional chest pain Chest pain Menstrual problem Screening for cardiovascular condition Family planning advice Irregular menses Heart abnormality PTSD (post-traumatic stress disorder) Depression Anxiety Asthma Family History Father Asthma HTN (hypertension) Diabetes Coronary heart disease Alcoholism Psychiatric disorder Paternal Grandfather Asthma Diabetes Alcoholism Maternal Grandmother Diabetes Paternal Grandmother Diabetes Mother Prediabetes Hyperthyroidism Psychiatric disorder Other FHx: mental illness Substance abuse Social History (Updated 07/08/25 @ 14:05 by Mitzy Merritt CMA) Housing: House Alcohol intake: never Patient Tobacco Use Status: Former Tobacco user e-Cigarette/Vaping Use: Former Use Second Hand Smoke Exposure: No Substance Use Type: Marijuana service: No Current occupational status: unemployed Cognitive needs: Yes (bad memory, hears things that aren't there) Hearing needs: No Vision needs: No Questionnaire Thrive Questionnaire Date Thrive assessed: 12/11/24 I am a: Patient What is your living situation today?: I have a steady place to live Within the past 12 months, did the food you bought not last and you didn't have the money to get more?: Sometimes True Within the past 12 months, did you worry whether your food would run out before you got money to buy more?: Never true Do you have trouble paying for medicines?: No Do you have trouble getting transportation to medical appointments?: No Do you have trouble paying your heating and electricity bill?: No Do you have trouble taking care of your child, family member or friend?: No Do you have trouble with day-to-day activities such as bathing, preparing meals, shopping, managing finances, etc.?: No Are you currently unemployed and looking for a job?: No Are you interested in more education?: No Please select the resources that you would like help with: None THRIVE Score: 1 RAUL-7 AMB Questionnaire RAUL-7 Date RAUL - 7 assessed: 02/22/25 Source: Developed by Drs. Javi Bautista, Blanca Conn, Edu Bautista and colleagues, with an educational danae from [employer]. Physical exam (Primary Care) Vital Signs: Last Vital Signs Temp 98.2 F 07/08/25 14:05 Pulse 92 07/08/25 14:05 Resp 12 07/08/25 14:05 BP 100/60 07/08/25 14:05 Pulse Ox 99 07/08/25 14:05 Oxygen Delivery Method Room Air 07/08/25 14:05 BMI result Body Mass Index 23.6 Tobacco/Smoking Status: Tobacco use Status Tobacco use date assessed 07/08/25 07/08/25 14:08 Patient Tobacco Use Status Former Tobacco user 07/08/25 14:08 e-Cigarette/Vaping Use Former Use 07/08/25 14:08 Thrive Assessment: Date of Thrive Assessment Date Thrive assessed 12/11/24 07/08/25 14:08 Coding Level of Care Code Est Pt Level 4 (40016) Complex EM visit Add On G2211 Diagnoses Chest pain, unspecified type R07.9 Chest pain type: unspecified Less than 8 weeks gestation of Z3A.01 Weeks of gestation: less than 8 weeks Mild intermittent asthma without complication J45.20 Asthma severity: mild Asthma persistence: intermittent Asthma complication type: uncomplicated Anxiety F41.9 Depression, unspecified depression type F32.A Depression Type: unspecified Gastroesophageal reflux disease without esophagitis K21.9 Esophagitis presence: without esophagitis Assessment & Plan Assessment & Plan (1) Chest pain: Code(s): R07.9 - Chest pain, unspecified Category: Medical Qualifiers: Chest pain type: unspecified Qualified Code(s): R07.9 - Chest pain, unspecified (2) : Code(s): Z34.90 - Encounter for supervision of normal , unspecified, unspecified trimester Category: Medical Qualifiers: Weeks of gestation: less than 8 weeks Qualified Code(s): Z3A.01 - Less than 8 weeks gestation of (3) Asthma: Code(s): J45.909 - Unspecified asthma, uncomplicated Category: Medical Qualifiers: Asthma severity: mild Asthma persistence: intermittent Asthma complication type: uncomplicated Qualified Code(s): J45.20 - Mild intermittent asthma, uncomplicated (4) Anxiety: Code(s): F41.9 - Anxiety disorder, unspecified Category: Medical (5) Depression: Code(s): F32.9 - Major depressive disorder, single episode, unspecified Category: Medical Qualifiers: Depression Type: unspecified Qualified Code(s): F32.A - Depression, unspecified (6) Acid reflux: Code(s): K21.9 - Gastro-esophageal reflux disease without esophagitis Category: Medical Qualifiers: Esophagitis presence: without esophagitis Qualified Code(s): K21.9 - Gastro-esophageal reflux disease without esophagitis Plan In summary this is a 20-year-old female who is 26 weeks with a history of anxiety and depression who presented for med review and re-evaluation of intermittent chest pain. Warning signs warranting calling 911 reviewed with the patient. Lab work was appropriate for . Echocardiogram and EKG were negative. Unfortunately she had transportation issues with the appointment at [facility] [place] and can not be seen until September. [facility] since she lives in [place]. I will start her on famotidine 10 mg twice daily as needed since she also reports acid reflux which could cause similar symptoms. She will continue sertraline 75 mg daily. Black box warning reviewed. She will follow up with me in 8 weeks. Orders: Referrals Cardiology Referral R07.9 - Chest pain, unspecified, Z34.90 - Encounter for supervision of normal , unspecified, unspecified trimester Medications: New famotidine (Pepcid AC) 10 mg PO BID PRN 60 tabs 0RF heartburn
[2025-07-08 14:05] VITALS: BP 100/60; PULSE 92; RESP 12; TEMP 36.8; O2SAT 99; BMI 23.6
== END 2025-07-08 14:42 | disposition home or self-care (01) ==
LOC: HO.HMCFM 13:46
PROVIDERS: PCP Physician Assistant Medical; Visit Provider Physician Assistant Medical
DX: R07.9 Chest pain, unspecified (principal); Z3A.01 Less than 8 weeks gestation of pregnancy; J45.20 Mild intermittent asthma, uncomplicated; F41.9 Anxiety disorder, unspecified; F32.A Depression, unspecified; K21.9 Gastro-esophageal reflux disease without esophagitis

== ENCOUNTER → 2025-07-08 13:45 | Outpatient (BNVA) | payer OTHER, SELFPAY | PROVIDERS: PCP Physician Assistant Medical; Visit Provider Physician Assistant Medical | DX: O26.892 Other specified pregnancy related conditions, second trimester (principal); R07.9 Chest pain, unspecified; O99.342 Other mental disorders complicating pregnancy, second trimester; F41.8 Other specified anxiety disorders; F32.A Depression, unspecified; O99.512 Diseases of the respiratory system complicating pregnancy, second trimester; J45.20 Mild intermittent asthma, uncomplicated; O99.612 Diseases of the digestive system complicating pregnancy, second trimester; K21.9 Gastro-esophageal reflux disease without esophagitis; Z3A.26 26 weeks gestation of pregnancy; Z79.899 Other long term (current) drug therapy | CPT/HCPCS: 99212 ==